=== PATIENT | male | born 1965 | race Caucasian/White ===

== ENCOUNTER 2021-04-05 07:29 | Emergency (ER) | payer SELFPAY ==
--- NOTE | ~2021-04-05 | XR_ITS ---
EXAMINATION: XR CHEST CLINICAL INFORMATION: Chest pain COMPARISON: July 30, 2020 TECHNIQUE: AP portable view of the chest was obtained. FINDINGS: No significant abnormality is noted involving the heart, lungs, mediastinum, bony thorax or soft tissues. XR/XR chest 1V IMPRESSION: No acute disease.
--- NOTE | ~2021-04-05 | NM_ITS ---
EXAMINATION: NUCLEAR MEDICINE HIDA SCAN. CLINICAL INFORMATION: Right upper quadrant pain. COMPARISON: Ultrasound abdomen 04/05/2021 TECHNIQUE: 5 mCi of mebrofenin was injected intravenously and imaging the right upper quadrant was obtained up to 60 minutes. At 30 minutes 1.5 mcg of CCK was administered and further imaging was obtained for next 30 minutes. FINDINGS: There is normal hepatic uptake with prompt visualization of CBD by 9 minutes. The gallbladder is visualized by 15 minutes. Small bowel is visualized by 14 minutes. Post CCK there is no emptying of gallbladder up to 30 minutes suggestive of acalculus cholecystitis. NM/NM hepatobiliary w pharm IMPRESSION: Findings suggestive of acalculus cholecystitis.
--- NOTE | ~2021-04-05 | US_ITS ---
EXAMINATION: US ABDOMEN LIMITED CLINICAL INFORMATION: Evaluate for cholecystitis. COMPARISON: CT abdomen and pelvis with contrast 04/05/2021 TECHNIQUE: Real-time imaging of the right upper quadrant abdominal viscera. FINDINGS: PANCREAS: The head and body of pancreas is homogeneous in echotexture. The tail is obscured by overlying gas. There are punctate echogenic calcification seen in the body of the pancreas. LIVER: Normal. The liver is normal in size. The liver contour is normal. Parenchymal echogenicity is normal. No focal hepatic lesion. There is no intrahepatic biliary duct dilatation seen. GALLBLADDER: Gallbladder wall thickness is 0.3 cm The gallbladder is physiologically distended without evidence of stones, sludge, polyps, wall thickening or pericholecystic fluid. There is mild tenderness in the right upper quadrant. COMMON BILE DUCT: Normal in caliber measuring 0.3 - 0.6 cm in diameter. RIGHT KIDNEY: In the lower pole there is a tiny echogenic calcification with shadowing likely stone. No hydronephrosis. No focal parenchymal lesions. The kidney measures 11.5 cm in maximum dimension. FREE FLUID: None. US/US abdomen limited IMPRESSION: Distended gallbladder but no echogenic stones seen. There is mild tenderness in the right upper quadrant. Gallbladder wall thickness is minimally prominent measuring 0.3 cm. No pericholecystic fluid collection. There is punctate calcifications in the pancreas but otherwise unremarkable. Liver, spleen CBD and right kidney is unremarkable.. Likely nonobstructive echogenic stone lower pole left kidney
--- NOTE | ~2021-04-05 | CT_ITS ---
EXAMINATION: CT ABDOMEN AND PELVIS WITH CONTRAST CLINICAL INFORMATION: Epigastric pain and nausea COMPARISON: None TECHNIQUE: Multidetector volumetric images were obtained from the superior aspect of the liver through the pubic symphysis following administration 85 mL of Omnipaque 350 intravenous contrast. Sagittal and coronal reformatted images were obtained on the technologist's workstation. Oral contrast: Yes This CT examination was performed using dose optimization techniques as appropriate, variously including the following: *Automated exposure control *Adjustment of mA and/or kV according to patient size (this includes techniques or standardized protocols for targeted exams where dose is matched to indication/reason for exam; i.e. extremities or head) *Use of iterative reconstruction technique DLP: 439 mGy-cm FINDINGS: LUNG BASES: There is motion artifact at the lung bases. There may be a small calcified right lower lobe nodule axial image 34 series 4. LIVER, GALLBLADDER, AND BILIARY TREE: The liver is normal in size, shape, and attenuation. No focal hepatic lesion or biliary ductal dilatation is present. The gallbladder is upper normal in size. The gallbladder wall may be minimally thickened. No gallstones or pericholecystic fluid is seen. There is no intra or extrahepatic biliary duct dilatation. PANCREAS: There are small calcifications in the pancreas questionable for changes from chronic pancreatitis. SPLEEN: Unremarkable. ADRENAL GLANDS: Unremarkable. KIDNEYS AND URETERS: There are 2 small calcifications in the lower pole of the right kidney questionable for small stones. There are bilateral more central calcifications probably representing vascular calcifications. There is a small 4 mm lesion exophytic to the upper pole of the left kidney for example coronal reconstructed image 53 and sagittal reconstructed image 49. This is adjacent to an area of cortical thinning or junctional parenchymal defect. No hydronephrosis. BLADDER: Not optimally distended. There may be diffuse bladder wall thickening. GASTROINTESTINAL TRACT: There is stool throughout the colon suggestive of constipation. It is difficult to exclude mild wall thickening of the sigmoid colon for example axial image 60 series 3. Small and large bowel is otherwise unremarkable. The appendix is unremarkable. There may be wall thickening of the proximal stomach. ABDOMINAL WALL: There is a tiny umbilical hernia containing fat. LYMPH NODES: There are small retroperitoneal lymph nodes. No enlarged lymph nodes are seen. VASCULAR: There is evidence of atherosclerotic disease. PELVIC VISCERA: Unremarkable. OSSEOUS STRUCTURES: There are mild degenerative changes of the spine. CT/CT abdomen pelvis w con IMPRESSION: Upper normal-size gallbladder and question mild gallbladder wall thickening. No stone or pericholecystic fluid seen. Cholecystitis should be considered. This could be better evaluated with ultrasound if clinically indicated. Small calcifications in the pancreas suggestive of evidence of chronic pancreatitis. No evidence of acute pancreatitis. Small right renal stones. Small 4 mm indeterminate lesion exophytic to the upper pole the left kidney adjacent to area of cortical thinning or scarring or persistent parenchymal junctional defect. Probable mild diffuse bladder wall thickening. Constipation. Question mild wall thickening of the sigmoid colon and proximal stomach.
--- NOTE | 2021-04-05 07:34 | ECG_ITS ---
Test Reason : CP Blood Pressure : / mmHG Vent. Rate : 075 BPM Atrial Rate : 075 BPM P-R Int : 126 ms QRS Dur : 090 ms QT Int : 374 ms P-R-T Axes : 060 073 064 degrees QTc Int : 417 ms Normal sinus rhythm Voltage criteria for left ventricular hypertrophy Abnormal ECG When compared with ECG of 30-JUL-2020 08:08, No significant change was found Referred By: Gill Lea Electronically Signed By:SHELIA JUNIOR MD
--- NOTE | 2021-04-05 07:37 | ED_ITS ---
HPI - Chest Pain General Chief Complaint: Chest Pain Stated Complaint: chest pain Time Seen by Provider: 04/05/21 07:33 Source: patient Mode of arrival: ambulatory Limitations: no limitations History of Present Illness MD complaint: other (epigastric pain) Onset (ago): week(s) (1) Timing of current episode: episodic Prior episodes: No Onset: after eating Pain location: substernal Pain radiation: none Severity: moderate Quality: tightness and aching Relieving factors: nothing Exacerbating factors: eating Associated symptoms: dyspnea Treatment prior to arrival: none Related Data Previous Rx's Medication Instructions Recorded amoxicillin-pot clavulanate 1 tab PO BID #14 tab 04/05/21 [Augmentin] famotidine [Pepcid] 20 mg PO DAILY PRN #30 tab 04/05/21 glipizide 10 mg PO DAILY #30 tab 04/05/21 hydrocodone-acetaminophen 1 tab PO Q6H PRN #12 tab 04/05/21 ondansetron 4 mg PO Q8H PRN #20 tab 04/05/21 pioglitazone 45 mg PO DAILY #30 tab 04/05/21 Allergies Allergy/AdvReac Type Severity Reaction Status Date / Time No Known Allergies Allergy Unverified 08/09/20 19:53 [No Known Allergies*] Review of Systems Review of Systems: Constitutional : No Weight loss, No Fever, No Chills ENT/Mouth : No sore throat, No Rhinorrhea Eyes: No Eye Pain, No Swelling Cardiovascular : pos Chest Pain, pos SOB, no Dyspnea on Exertion, No Orthopnea, No Edema, No Palpitations Respiratory : No Cough, No Sputum Gastrointestinal : pos Nausea, No Vomiting, No Diarrhea, pos abdominal Pain, No Hematochezia, No Melena Genitourinary : No Dysuria, No Urinary Frequency Musculoskeletal : No joint pain, No Myalgias, No Joint Swelling Skin : No Skin Lesions, No rash Neuro : No Weakness, No Numbness, No Dizziness, No Headache Psych : No Anxiety/Panic, No Depression Heme/Lymph: No Bruising, No Lymphadenopathy Endocrine : No Polyuria, No Polydipsia All other systems reviewed and are negative [facility] Past Medical History Attestation statement: The following information was validated with the patient. Medical History Diabetes HTN (hypertension) Neuropathy Social History Social History (Updated 04/05/21 @ 07:43 by Gill Lea DO) Alcohol intake: never Smoking Status: Current every day smoker Smoked in Last 30 Days: Yes Use of substances other than those prescribed or required for medical reasons: No Advance Directives: Yes Advance Directives Information Provided: Yes Advance Directives on File: No Physical Exam Vital Signs: Vital Signs: Last Vital Signs Temp 98.1 F 04/05/21 12:52 Pulse 74 04/05/21 12:52 Resp 16 04/05/21 12:52 BP 165/78 H 04/05/21 12:52 Pulse Ox 96 04/05/21 12:52 Body Mass Index 26.7 Appearance: Alert. Oriented X3. No acute distress. Eyes: Pupils equal, round and reactive to light. ENT: Pharynx normal. Neck: Normal inspection. Neck supple. CVS: Normal heart rate and rhythm. Pulses normal. Respiratory: No respiratory distress. Breath sounds normal. Abdomen: Soft and mild epigastric ttp no rebound or guarding Skin: Skin warm and dry. Normal skin color. Normal skin turgor. Extremities: No lower extremity edema. No calf ttp Neuro: Oriented X 3. No motor deficit. No sensory deficit. Course Course Course Narrative: chronic pancreatitis possible GB disease, cardiac workup thus far negative, US for further GB evaluation noted US concerning for GB disease, Dr. Oshea aware will come see patient in the ED stable for DC per Dr. Oshea will see as outpatient MDM - Chest Pain MDM Narrative Medical decision making narrative: 55 yo male with HTN, DM, smoker no prior cardiac issues c/o chest pain that is in epigastric area worse with eating - denies NSAID use or GIB symptoms, feels like after he eats he cannot take a deep breath has been going on for a week, no signs of DVT, no tachycardia/hypoxia doubt PE, seems atypical for ACS, ?PUD at this time labs, CT scan, troponin x 1, GI cocktail, PPI Lab Data Result diagrams: 04/05/21 08:04 04/05/21 08:34 Labs: Lab Results 04/05/21 04/05/21 04/05/21 Range/Units 08:04 08:04 08:04 WBC 12.5 H (4.8-10.8) X10*3/uL RBC 4.55 L (4.60-5.80) X10*6/uL Hgb 13.4 L (14.0-18.0) g/dl Hct 41.6 L (42-52) % MCV 91.4 (80-98) fL MCH 29.5 (27.0-33.0) pg MCHC 32.2 (31.0-36.0) g/dl RDW 12.9 (11.0-16.0) % Plt Count 294 (160-400) X10*3/uL MPV 10.0 (9.4-12.4) fL Immature Gran % (Auto) 0.6 H (0.0-0.4) % Neut % (Auto) 71.0 (45-73) % Lymph % (Auto) 21.0 (20-40) % [place] % (Auto) 5.6 (2-11) % Eos % (Auto) 1.2 (0-4) % Baso % (Auto) 0.6 (0-2) % Lymph # (Auto) 2.6 (1.2-4.9) X10*3/uL [place] # (Auto) 0.7 (0.1-1.2) X10*3/uL Eos # (Auto) 0.2 (0.0-0.4) X10*3/uL Baso # (Auto) 0.1 (0.0-0.2) X10*3/uL Abs Immat Gran (auto) 0.07 H (0.00-0.03) X10*3/uL Absolute Neuts (auto) 8.9 H (2.0-8.3) X10*3/uL Absolute Nucleated RBC 0.000 (0.0-0.012) X10*3/uL Nucleated RBC % (auto) 0.0 (0.0-0.2) /100WBC PT (10.8-13.0) SEC INR (0.9-1.1) APTT (24.1-38.0) SEC Sodium (135-145) mmol/L Potassium (3.3-5.1) mmol/L Chloride (96-108) mmol/L Carbon Dioxide (22-29) mmol/L Anion Gap (12-20) BUN (9-16) mg/dL Creatinine (0.5-1.4) mg/dL Estim Creat Clear Calc Estimated GFR Random Glucose (60-115) mg/dL Calcium (8.4-10.2) mg/dL Magnesium (1.6-2.6) mg/dL Total Bilirubin (0.0-1.0) mg/dL Direct Bilirubin (0.0-0.5) mg/dL AST (5-37) U/L ALT (0-40) U/L Alkaline Phosphatase (39-117) U/L Troponin I High Sens 6.4 (<3.5-35.0) ng/L Total Protein (6.5-8.0) g/dL Albumin (3.5-5.0) g/dL Lipase (8-78) U/L COVID-19 (ITALO) Negative (Negative) COVID-19 Clin Com See Note 04/05/21 04/05/21 Range/Units 08:34 08:34 WBC (4.8-10.8) X10*3/uL RBC (4.60-5.80) X10*6/uL Hgb (14.0-18.0) g/dl Hct (42-52) % MCV (80-98) fL MCH (27.0-33.0) pg MCHC (31.0-36.0) g/dl RDW (11.0-16.0) % Plt Count (160-400) X10*3/uL MPV (9.4-12.4) fL Immature Gran % (Auto) (0.0-0.4) % Neut % (Auto) (45-73) % Lymph % (Auto) (20-40) % [place] % (Auto) (2-11) % Eos % (Auto) (0-4) % Baso % (Auto) (0-2) % Lymph # (Auto) (1.2-4.9) X10*3/uL [place] # (Auto) (0.1-1.2) X10*3/uL Eos # (Auto) (0.0-0.4) X10*3/uL Baso # (Auto) (0.0-0.2) X10*3/uL Abs Immat Gran (auto) (0.00-0.03) X10*3/uL Absolute Neuts (auto) (2.0-8.3) X10*3/uL Absolute Nucleated RBC (0.0-0.012) X10*3/uL Nucleated RBC % (auto) (0.0-0.2) /100WBC PT 10.6 L (10.8-13.0) SEC INR 0.9 (0.9-1.1) APTT 35.7 (24.1-38.0) SEC Sodium 136 (135-145) mmol/L Potassium 5.6 H (3.3-5.1) mmol/L Chloride 105 (96-108) mmol/L Carbon Dioxide 26 (22-29) mmol/L Anion Gap 11 L (12-20) BUN 16 (9-16) mg/dL Creatinine 0.86 (0.5-1.4) mg/dL Estim Creat Clear Calc 91.8 Estimated GFR > 60 Random Glucose 264 H (60-115) mg/dL Calcium 9.2 (8.4-10.2) mg/dL Magnesium 1.9 (1.6-2.6) mg/dL Total Bilirubin 0.2 (0.0-1.0) mg/dL Direct Bilirubin < 0.2 (0.0-0.5) mg/dL AST 12 (5-37) U/L ALT 14 (0-40) U/L Alkaline Phosphatase 92 (39-117) U/L Troponin I High Sens (<3.5-35.0) ng/L Total Protein 6.9 (6.5-8.0) g/dL Albumin 4.0 (3.5-5.0) g/dL Lipase 189 H (8-78) U/L COVID-19 (ITALO) (Negative) COVID-19 Clin Com ECG Data ECG #1: Attestation: I personally reviewed and interpreted this ECG as follows: ECG interpretation date: 04/05/21 ECG interpretation time: 07:41 Interpretation: Rate: 75 Rhythm: NSR [place]: normal , LVH Normal P waves. Normal KENDRICK. Normal QRS complex. ST T wave : normal, no NABEEL - mild diffuse early repol qTC: normal prior studies: no acute ischemia The study has been interpreted contemporaneously by me. . Discharge Plan Discharge Clinical Impression: RUQ abdominal pain, Biliary dyskinesia Patient Disposition: Home, Self-Care Instructions: Low Fat Diet (ED), Biliary Dyskinesia (DC) Additional Instructions: return to ED for any worsening symptoms or concerns eat all low fat diet Prescriptions: New hydrocodone-acetaminophen 5-325 mg tablet 1 tab PO Q6H PRN (Reason: pain) Qty: 12 RF: 0 famotidine [Pepcid] 20 mg tablet 20 mg PO DAILY PRN (Reason: abdominal discomfort) Qty: 30 RF: 0 ondansetron 4 mg tablet,disintegrating 4 mg PO Q8H PRN (Reason: nausea and vomiting) Qty: 20 RF: 0 amoxicillin-pot clavulanate [Augmentin] 875-125 mg tablet 1 tab PO BID Qty: 14 RF: 0 glipizide 10 mg tablet 10 mg PO DAILY Qty: 30 RF: 2 pioglitazone 45 mg tablet 45 mg PO DAILY Qty: 30 RF: 2 Referrals: Nico Oshea MD [Physician] - 1 week (next week) Stand Alone Forms: Work/School Release
[2021-04-05 07:38] VITALS: BP 172/76; PULSE 76; RESP 20; TEMP 36.6; O2SAT 99; BMI 26.7
[2021-04-05 08:08] LABS: MANUAL DIFF FLAG NO
[2021-04-05 08:13] LABS: Basophils Absolute Auto 0.1 X10*3/uL (0.0-0.2); Basophils Percent Auto 0.6 % (0-2); Eosinophils Absolute Auto 0.2 X10*3/uL (0.0-0.4); Eosinophils Percent Auto 1.2 % (0-4); Hematocrit 41.6 % (42-52); Hemoglobin 13.4 g/dl (14.0-18.0); Imm Gran Abs Auto 0.07 X10*3/uL (0.00-0.03); Imm Gran Pct Auto 0.6 % (0.0-0.4); Lymphocytes Absolute Auto 2.6 X10*3/uL (1.2-4.9); Mean Corpuscular HGB Conc 32.2 g/dl (31.0-36.0); Mean Corpuscular Hemoglobin 29.5 pg (27.0-33.0); Mean Corpuscular Volume 91.4 fL (80-98); Monocytes Absolute Auto 0.7 X10*3/uL (0.1-1.2); Monocytes Percent Auto 5.6 % (2-11); Neutrophils Absolute Auto 8.9 X10*3/uL (2.0-8.3); Platelet Count 294 X10*3/uL (160-400); Red Blood Count 4.55 X10*6/uL (4.60-5.80); Red Cell Distribution Width 12.9 % (11.0-16.0); White Blood Count 12.5 X10*3/uL (4.8-10.8)
[2021-04-05 08:17] VITALS: BP 154/76; PULSE 79; RESP 16; O2SAT 97
[2021-04-05] MEDS: Lidocaine HCl Viscous 2 % 15 ML SOLUTION MUCOUS MEM (08:18)
[2021-04-05] MEDS: Magnesium Hydrox/Alum Hydrox 30 ML ORAL.SUSP PO (08:18)
[2021-04-05] MEDS: Omeprazole 20 MG CAPSULE.DR PO (08:18)
[2021-04-05 08:27] LABS: COVID-19 Test Negative (Negative)
[2021-04-05 08:37] LABS: Troponin-I High Sensitivity 6.4 ng/L (<3.5-35.0)
[2021-04-05 08:54] LABS: INTERNATIONAL NORM RATIO 0.9 (0.9-1.1); Prothrombin Time 10.6 SEC (10.8-13.0)
[2021-04-05 08:57] LABS: Partial Thromboplastin Time 35.7 SEC (24.1-38.0)
[2021-04-05 09:15] LABS: Alanine Aminotransferase 14 U/L (0-40); Alkaline Phosphatase 92 U/L (39-117); Anion Gap 11 (12-20); Aspartate Amino Transferase 12 U/L (5-37); Bilirubin Direct < 0.2 mg/dL (0.0-0.5); Bilirubin Total 0.2 mg/dL (0.0-1.0); Blood Urea Nitrogen 16 mg/dL (9-16); Calcium 9.2 mg/dL (8.4-10.2); Carbon Dioxide 26 mmol/L (22-29); Chloride 105 mmol/L (96-108); Creatinine Clr Calc Pharmacy 91.8; Estimated Glomerular Filt Rate > 60; Glucose Random 264 mg/dL (60-115); Magnesium 1.9 mg/dL (1.6-2.6); Potassium 5.6 mmol/L (3.3-5.1); Sodium 136 mmol/L (135-145); Total Protein 6.9 g/dL (6.5-8.0)
[2021-04-05 09:28] LABS: Lipase 189 U/L (8-78)
[2021-04-05] MEDS: 0.9 % Sodium Chloride 1,000 ML 999 ML IVCONT (09:39)
[2021-04-05] MEDS: iohexoL 350 MG/ML 100 ML INFUS..BTL IV (09:43)
--- NOTE | 2021-04-05 12:44 | P.CONGS_ITS ---
History of Present Illness Consult details Consult date: 04/05/21 Reason for consult: abdominal pain Requesting physician: Gill Lea Narrative: 55-year-old male presenting with a 1.5 week history of abdominal pain located in the epigastrium radiating to the right upper quadrant. The pain has been persistent and increases after eating. 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 He subsequently presented to the emergency department was noted to be tender in the right upper quadrant. Workup revealed a mildly elevated WBC, LFTs normal. Ultrasound of the abdomen revealed a distended gallbladder with its mild tenderness to palpation. No gallstones were identified within the gallbladder. No wall thic kening was appreciated by ultrasound. Surgical consultation was requested for possible acalculous cholecystitis. Review of Systems Review of Systems: Yes all other systems are reviewed and are negative Constitutional: Constitutional: Reports difficulty sleeping, Reports fatigue and Reports malaise Cardiovascular: Cardiovascular: Reports chest pain, Denies irregular heart rhythm, Denies leg edema and Denies Loss of Consciousness Respiratory: Respiratory: Denies chest congestion, Denies cough, Denies hemoptysis and Reports pain on inspiration Gastrointestinal: Gastrointestinal: Denies abdominal pain, Reports bloating, Denies hematochezia, Denies coffee ground emesis, Reports nausea and Denies vomiting Genitourinary: Genitourinary: Reports no additional male genitourinary complaints Musculoskeletal: Musculoskeletal: Reports no additional musculoskeletal complaints Endocrine: Endocrine: Reports fatigue Hematologic/Lymphatic: Hematologic/Lymphatic: Denies lymphadenopathy [facility] Past Medical History Medical History Diabetes HTN (hypertension) Neuropathy Social History Social History (Updated 04/05/21 @ 07:43 by Gill Lea DO) Alcohol intake: never Smoking Status: Current every day smoker Smoked in Last 30 Days: Yes Use of substances other than those prescribed or required for medical reasons: No Advance Directives: Yes Advance Directives Information Provided: Yes Advance Directives on File: No Meds Allergies Allergy/AdvReac Type Severity Reaction Status Date / Time No Known Allergies Allergy Unverified 08/09/20 19:53 [No Known Allergies*] Physical Exam Vital Signs: Vital Signs: Last Vital Signs Temp 98 F 04/05/21 07:38 Pulse 79 04/05/21 08:17 Resp 16 04/05/21 08:17 BP 154/76 H 04/05/21 08:17 Pulse Ox 97 04/05/21 08:17 Body Mass Index 26.7 Const: General: cooperative, comfortable, no acute distress, alert and awake Orientation/consciousness: patient oriented x3 Limitations: no limitations Eyes: Sclerae: sclerae normal EOM: EOMs intact bilaterally Neck: Neck: Yes normal visual inspection Lymphatic: no lymphadenopathy noted Resp: Effort & Inspection: normal respiratory effort Cardio: Jugular venous distension: no JVD Rate: regular rate Rhythm: regular rhythm GI: Inspection: Yes distended and No scar Palpation (GI): Soft to palpation, Tenderness to palpation present (GI) in the RUQ and Lockett's sign positive and no masses Percussion: Yes normal to percussion Auscultation: normal bowel sounds Rectal Exam - Male: Yes deferred Skin: General skin exam: no rashes or lesions noted Neuro: General: patient oriented x3 Extrem: General: Yes no clubbing, cyanosis or edema Results Labs Result diagrams: 04/05/21 08:04 04/05/21 08:34 Labs: Abnormal lab results 04/05/21 04/05/21 04/05/21 Range/Units 08:04 08:34 08:34 WBC 12.5 H (4.8-10.8) X10*3/uL RBC 4.55 L (4.60-5.80) X10*6/uL Hgb 13.4 L (14.0-18.0) g/dl Hct 41.6 L (42-52) % Immature Gran % (Auto) 0.6 H (0.0-0.4) % Abs Immat Gran (auto) 0.07 H (0.00-0.03) X10*3/uL Absolute Neuts (auto) 8.9 H (2.0-8.3) X10*3/uL PT 10.6 L (10.8-13.0) SEC Potassium 5.6 H (3.3-5.1) mmol/L Anion Gap 11 L (12-20) Random Glucose 264 H (60-115) mg/dL Lipase 189 H (8-78) U/L Short CBC 04/05/21 Range/Units 08:04 WBC 12.5 H (4.8-10.8) X10*3/uL Hgb 13.4 L (14.0-18.0) g/dl Hct 41.6 L (42-52) % Plt Count 294 (160-400) X10*3/uL BMP 04/05/21 08:34 Sodium 136 Potassium 5.6 H Chloride 105 Carbon Dioxide 26 BUN 16 Creatinine 0.86 Calcium 9.2 Liver Function 04/05/21 Range/Units 08:34 Total Bilirubin 0.2 (0.0-1.0) mg/dL Direct Bilirubin < 0.2 (0.0-0.5) mg/dL AST 12 (5-37) U/L ALT 14 (0-40) U/L Alkaline Phosphatase 92 (39-117) U/L Albumin 4.0 (3.5-5.0) g/dL All other labs normal. Assessment and Plan (1) RUQ abdominal pain: Status: Acute 55-year-old male patient presenting with complaints of 1.5 weeks of abdominal pain in the right upper quadrant associated with dietary intake found to be tender in the right upper quadrant with a positive Lockett sign. Workup with laboratories revealed a mildly elevated WBC but normal liver functions. Ultrasound the abdomen revealed a distended gallbladder without wall thickening or cholelithiasis. Examination is suggestive of acalculous cholecystitis therefore I recommended further evaluation with a HIDA scan. If this reveals obstruction of the gallbladder, cholecystectomy may be indicated.
[2021-04-05 12:52] VITALS: BP 165/78; PULSE 74; RESP 16; TEMP 36.7; O2SAT 96
== END 2021-04-05 16:13 | disposition home or self-care (01) ==
PROVIDERS: Emergency Provider Emergency Medicine; PCP Internal Medicine Sports Medicine
DX: R10.13 Epigastric pain (principal); R07.9 Chest pain, unspecified; K82.8 Other specified diseases of gallbladder; F17.200 Nicotine dependence, unspecified, uncomplicated; Z20.822 Contact with and (suspected) exposure to COVID-19; Z79.899 Other long term (current) drug therapy; Z71.6 Tobacco abuse counseling
CPT/HCPCS: 36415; 71045; 74177; 76705; 78227; 80048; 80076; 83690; 83735; 84484; 85025; 85610; 85730; 87635; 93005; 96360; 96361; 99284; A9537; J2805; Q9967

== ENCOUNTER 2021-07-11 02:07 | Emergency (ER) | payer MEDICAID, SELFPAY ==
[2021-07-11 02:30] VITALS: BP 190/83; PULSE 110; RESP 16; TEMP 36.7; O2SAT 98; BMI 25.8
[2021-07-11 03:14] LABS: Glucose Urine UA >=1000 MG/DL (NEG); Leukocyte Esterase Urine NEG (NEG); Nitrite Urine NEG (NEG); Urine Blood NEG (NEG); Urine Ketones NEG (NEG); Urine Protein NEG (NEG-TRACE)
[2021-07-11 03:16] LABS: Appearance Urine CLEAR; Color Urine YELLOW
[2021-07-11 03:24] LABS: Bacteria Urine 1+ /LPF; Squamous Epithelial Cell Urine 1+ /LPF
[2021-07-11 03:47] LABS: Amphetamine Screen Urine Not Detected (Not Detect); Barbiturates, Urine Not Detected (Not Detect); Benzodiazepines Screen Urine Not Detected (Not Detect); Cannabinoid Screen Urine Not Detected (Not Detect); Cocaine Screen Urine Not Detected (Not Detect); Fentanyl, urine Not Detected (Not Detect); Opiate Screen Urine Not Detected (Not Detect); Phencyclidine Screen Urine Not Detected (Not Detect)
[2021-07-11 04:37] LABS: MANUAL DIFF FLAG NO
[2021-07-11 04:38] LABS: Basophils Absolute Auto 0.1 X10*3/uL (0.0-0.2); Basophils Percent Auto 0.6 % (0-2); Eosinophils Absolute Auto 0.2 X10*3/uL (0.0-0.4); Eosinophils Percent Auto 1.6 % (0-4); Hematocrit 38.7 % (42-52); Imm Gran Abs Auto 0.04 X10*3/uL (0.00-0.03); Imm Gran Pct Auto 0.3 % (0.0-0.4); Lymphocytes Absolute Auto 3.1 X10*3/uL (1.2-4.9); Lymphocytes Percent Auto 26.6 % (20-40); Mean Corpuscular HGB Conc 33.6 g/dl (31.0-36.0); Mean Corpuscular Hemoglobin 30.2 pg (27.0-33.0); Mean Platelet Volume 10.1 fL (9.4-12.4); Monocytes Absolute Auto 0.7 X10*3/uL (0.1-1.2); Monocytes Percent Auto 6.1 % (2-11); Neutrophils Absolute Auto 7.5 X10*3/uL (2.0-8.3); Neutrophils Percent Auto 64.8 % (45-73); Platelet Count 265 X10*3/uL (160-400); Red Cell Distribution Width 13.4 % (11.0-16.0); White Blood Count 11.6 X10*3/uL (4.8-10.8)
[2021-07-11 05:16] LABS: Alanine Aminotransferase 14 U/L (0-40); Albumin Level 3.8 g/dL (3.5-5.0); Alkaline Phosphatase 91 U/L (39-117); Anion Gap 14 (12-20); Aspartate Amino Transferase 11 U/L (5-37); Bilirubin Total 0.2 mg/dL (0.0-1.0); Blood Urea Nitrogen 42 mg/dL (9-16); Calcium 9.5 mg/dL (8.4-10.2); Carbon Dioxide 19 mmol/L (22-29); Chloride 106 mmol/L (96-108); Creatinine Clr Calc Pharmacy 56.5; Estimated Glomerular Filt Rate 53; Glucose Random 471 mg/dL (60-115); Potassium 5.2 mmol/L (3.3-5.1); Sodium 134 mmol/L (135-145); Total Protein 6.3 g/dL (6.5-8.0)
--- NOTE | 2021-07-11 05:27 | ED_ITS ---
HPI - General Adult General Chief complaint: General Medical Stated complaint: reaction to meds? Time Seen by Provider: 07/11/21 04:39 Source: patient Mode of arrival: ambulatory Limitations: no limitations History of Present Illness HPI narrative: 56-year-old male who presents emergency department for evaluation of confusion. The patient states that he has been having left hip pain for 3 weeks. He does not recall any injury. States the pain is constant and is a pounding sensation. The pain radiates down to his foot. He states that he has weakness in his left leg compared to his right. The patient also states that 3 weeks ago he was diagnosed with pneumonia and put on antibiotics. States that his cough cleared up but he continued to have by a runny nose and sinus congestion. He went to an urgent care clinic today and had an x-ray of his left hip and was told that he had arthritis of the hip. He also had a negative COVID test. He was started on meloxicam and Zithromax. He states that both these medicines last night and also took a Mucinex. He states that this evening, he was confused, he seemed to lose track of time, did not realize that it was time to go to bed. He states that the symptoms are very unusual for him and his was concerned therefore he came to the emergency department for evaluation. Related Data Previous Rx's Medication Instructions Recorded amoxicillin 875 mg-potassium 1 tab PO BID #14 tab 04/05/21 clavulanate 125 mg tablet (Augmentin) famotidine 20 mg tablet (Pepcid) 20 mg PO DAILY PRN #30 tab 04/05/21 glipizide 10 mg tablet 10 mg PO DAILY #30 tab 04/05/21 ondansetron 4 mg disintegrating 4 mg PO Q8H PRN #20 tab 04/05/21 tablet pioglitazone 45 mg tablet 45 mg PO DAILY #30 tab 04/05/21 Allergies Allergy/AdvReac Type Severity Reaction Status Date / Time No Known Allergies Allergy Unverified 08/09/20 19:53 [No Known Allergies*] Review of Systems Review of Systems: Yes all other systems are reviewed and are negative [facility] Past Medical History [facility] Narrative: Social history: The patient smokes 2 packs of cigarettes per day. He denies alcohol use. He denies drug use. Medical History Diabetes HTN (hypertension) Neuropathy Social History Social History Alcohol intake: never Patient Tobacco Use Status: Never used Tobacco Use of substances other than those prescribed or required for medical reasons: No Advance Directives: No Advance Directives Information Provided: Yes Physical Exam Vital Signs: Vital Signs: Last Vital Signs Temp 98.1 F 07/11/21 02:30 Pulse 110 H 07/11/21 02:30 Resp 16 07/11/21 02:30 BP 190/83 H 07/11/21 02:30 Pulse Ox 98 07/11/21 02:30 Body Mass Index 25.8 Const: General: cooperative and no acute distress Orientation/c onsciousness: oriented to person and oriented to place Limitations: no limitations HENMT: Head: Yes normal to inspection, Yes normocephalic and Yes atraumatic Ears: external ears normal General nose exam: Normal external nose present Face and sinus: Yes normal facial exam Mouth: Normal oral and palatal mucosa present Throat: Yes posterior oropharynx normal Eyes: General: appearance normal, both eyes and all related structures Pupils: Equal, round and reactive pupils present Neck: Neck: Yes normal visual inspection, Yes no lymphadenopathy, Yes trachea midline and Yes supple Chest: Chest palpation & inspection: normal inspection of the chest and normal palpation of entire chest wall Resp: Effort & Inspection: normal respiratory effort and able to speak in complete sentences Auscultation: clear to auscultation bilaterally Cardio: Rate: regular rate Rhythm: regular rhythm Heart sounds: S1 normal heart sound present, S2 normal heart sound present and no murmurs GI: Inspection: Yes normal to inspection Palpation (GI): Soft to palpation, nontender and no guarding Auscultation: normal bowel sounds : General: Yes no CVA tenderness Back/Spine/Pelvis: Back: no CVA tenderness Skin: General skin exam: no rashes or lesions noted Neuro: General: oriented to person and oriented to place Cranial nerves: Yes CN's II-XII intact bilaterally and Yes Equal, round and reactive pupils present Cognition (Neuro): normal cognition Motor exam (neuro): 5/5 motor strength present throughout Extrem: General: Yes normal to inspection Psych: Appearance: grossly normal Speech and movement: Normal speech and movement present Affect: normal affect Attitude: cooperative Thought process: Normal thought process present Thought content: Normal thought co ntent present Course Course Course Narrative: 56-year-old male who presents emergency department for evaluation of confusion. Patient was seen in urgent care earlier in started on 2 medications Zithromax and meloxicam. Patient did take both of these medications last night as well as Mucinex. The patient's physical examination was unremarkable. The patient's left hip pain may be secondary to lower back p ain and radicular pain I did discuss this with him. The patient's laboratory evaluation did reveal an elevated glucose of 471 and this may be the cause of his confusion and I do not think is related to the 2 new medications that he started. Given his elevated glucose, I wanted to give the patient normal saline IV x2 L and some IV insulin however patient states that he wants to go home and drink fluid the old take his diabetic medications at home to correct his glucose. At this time the patient was discharged home. I did tell him it was okay to complete the Zithromax [place]ox[place] came. The patient was given verbal and printed instructions prior to discharge. The patient was advised to follow-up with his PCP in 2 days and to return to the emergency department if his symptoms get worse or if he develops any new symptoms that are concerning to him. Medical Decision Making Lab Data Result diagrams: 07/11/21 04:33 07/11/21 04:33 Labs: Lab Results 07/11/21 07/11/21 07/11/21 Range/Units 03:08 03:08 04:33 WBC 11.6 H (4.8-10.8) X10*3/uL RBC 4.30 L (4.60-5.80) X10*6/uL Hgb 13.0 L (14.0-18.0) g/dl Hct 38.7 L (42-52) % MCV 90.0 (80-98) fL MCH 30.2 (27.0-33.0) pg MCHC 33.6 (31.0-36.0) g/dl RDW 13.4 (11.0-16.0) % Plt Count 265 (160-400) X10*3/uL MPV 10.1 (9.4-12.4) fL Immature Gran % (Auto) 0.3 (0.0-0.4) % Neut % (Auto) 64.8 (45-73) % Lymph % (Auto) 26.6 (20-40) % [place] % (Auto) 6.1 (2-11) % Eos % (Auto) 1.6 (0-4) % Baso % (Auto) 0.6 (0-2) % Lymph # (Auto) 3.1 (1.2-4.9) X10*3/uL [place] # (Auto) 0.7 (0.1-1.2) X10*3/uL Eos # (Auto) 0.2 (0.0-0.4) X10*3/uL Baso # (Auto) 0.1 (0.0-0.2) X10*3/uL Abs Immat Gran (auto) 0.04 H (0.00-0.03) X10*3/uL Absolute Neuts (auto) 7.5 (2.0-8.3) X10*3/uL Absolute Nucleated RBC 0.000 (0.0-0.012) X10*3/uL Nucleated RBC % (auto) 0.0 (0.0-0.2) /100WBC Sodium (135-145) mmol/L Potassium (3.3-5.1) mmol/L Chloride (96-108) mmol/L Carbon Dioxide (22-29) mmol/L Anion Gap (12-20) BUN (9-16) mg/dL Creatinine (0.5-1.4) mg/dL Estim Creat Clear Calc Estimated GFR Random Glucose (60-115) mg/dL Calcium (8.4-10.2) mg/dL Total Bilirubin (0.0-1.0) mg/dL AST (5-37) U/L ALT (0-40) U/L Alkaline Phosphatase (39-117) U/L Total Protein (6.5-8.0) g/dL Albumin (3.5-5.0) g/dL Urine Color YELLOW Urine Appearance CLEAR Urine pH 6.0 (5.0-8.0) Ur Specific [place] 1.020 (1.005-1.025) Urine Protein NEG (NEG-TRACE) MG/DL Urine Glucose (UA) >=1000 H (NEG) MG/DL Urine Ketones NEG (NEG) MG/DL Urine Blood NEG (NEG) Urine Nitrite NEG (NEG) Ur Leukocyte Esterase NEG (NEG) Urine RBC 1-4 (0) /HPF Urine WBC 1-4 (0-4) /HPF Ur Squamous Epith Cells 1+ /LPF Urine Bacteria 1+ /LPF Urine Opiates Screen Not Detected (Not Detect) Urine Fentanyl Screen Not Detected (Not Detect) Ur Barbiturates Screen Not Detected (Not Detect) Ur Phencyclidine Scrn Not Detected (Not Detect) Ur Amphetamines Screen Not Detected (Not Detect) U Benzodiazepines Scrn Not Detected (Not Detect) Urine Cocaine Screen Not Detected (Not Detect) U Marijuana (THC) Screen Not Detected (Not Detect) 07/11/21 Range/Units 04:33 WBC (4.8-10.8) X10*3/uL RBC (4.60-5.80) X10*6/uL Hgb (14.0-18.0) g/dl Hct (42-52) % MCV (80-98) fL MCH (27.0-33.0) pg MCHC (31.0-36.0) g/dl RDW (11.0-16.0) % Plt Count (160-400) X10*3/uL MPV (9.4-12.4) fL Immature Gran % (Auto) (0.0-0.4) % Neut % (Auto) (45-73) % Lymph % (Auto) (20-40) % [facility] % (Auto) (2-11) % Eos % (Auto) (0-4) % Baso % (Auto) (0-2) % Lymph # (Auto) (1.2-4.9) X10*3/uL [place] # (Auto) (0.1-1.2) X10*3/uL Eos # (Auto) (0.0-0.4) X10*3/uL Baso # (Auto) (0.0-0.2) X10*3/uL Abs Immat Gran (auto) (0.00-0.03) X10*3/uL Absolute Neuts (auto) (2.0-8.3) X10*3/uL Absolute Nucleated RBC (0.0-0.012) X10*3/uL Nucleated RBC % (auto) (0.0-0.2) /100WBC Sodium 134 L (135-145) mmol/L Potassium 5.2 H (3.3-5.1) mmol/L Chloride 106 (96-108) mmol/L Carbon Dioxide 19 L (22-29) mmol/L Anion Gap 14 (12-20) BUN 42 H D (9-16) mg/dL Creatinine 1.38 (0.5-1.4) mg/dL Estim Creat Clear Calc 56.5 Estimated GFR 53 Random Glucose 471 H* (60-115) mg/dL Calcium 9.5 (8.4-10.2) mg/dL Total Bilirubin 0.2 (0.0-1.0) mg/dL AST 11 (5-37) U/L ALT 14 (0-40) U/L Alkaline Phosphatase 91 (39-117) U/L Total Protein 6.3 L (6.5-8.0) g/dL Albumin 3.8 (3.5-5.0) g/dL Urine Color Urine Appearance Urine pH (5.0-8.0) Ur Specific [place] (1.005-1.025) Urine Protein (NEG-TRACE) MG/DL Urine Glucose (UA) (NEG) MG/DL Urine Ketones (NEG) MG/DL Urine Blood (NEG) Urine Nitrite (NEG) Ur Leukocyte Esterase (NEG) Urine RBC (0) /HPF Urine WBC (0-4) /HPF Ur Squamous Epith Cells /LPF Urine Bacteria /LPF Urine Opiates Screen (Not Detect) Urine Fentanyl Screen (Not Detect) Ur Barbiturates Screen (Not Detect) Ur Phencyclidine Scrn (Not Detect) Ur Amphetamines Screen (Not Detect) U Benzodiazepines Scrn (Not Detect) Urine Cocaine Screen (Not Detect) U Marijuana (THC) Screen (Not Detect) Discharge Plan Discharge Clinical Impression: Acute hyperglycemia, Acute hip pain Patient Disposition: Home, Self-Care Additional Instructions: Your blood sugar was 471. When your blood sugar gets above 400 your very dehydrated. I offered to give you some IV fluid and some IV insulin however you want to go home and try to bring her sugar down by drinking fluids. He should drink at least 2 L of fluid today. Make sure you take your diabetic medications as prescribed by your doctor. I do not think that your symptoms were caused by the new medications that you were taking, you should take these medications as prescribed by your urgent care provider. Follow-up with your doctor in 2 days. Please return to the emergency department if your symptoms get worse or if you develop any symptoms that are concerning to you. Prescriptions: No Action famotidine [Pepcid] 20 mg tablet 20 mg PO DAILY PRN (Reason: abdominal discomfort) Qty: 30 RF: 0 ondansetron 4 mg tablet,disintegrating 4 mg PO Q8H PRN (Reason: nausea and vomiting) Qty: 20 RF: 0 amoxicillin-pot clavulanate [Augmentin] 875-125 mg tablet 1 tab PO BID Qty: 14 RF: 0 glipizide 10 mg tablet 10 mg PO DAILY Qty: 30 RF: 2 pioglitazone 45 mg tablet 45 mg PO DAILY Qty: 30 RF: 2 Interventions: ED Discharge Assessment Last Done: 07/11/21 05:42 Discharge Date/Time: 07/11/21 05:50
== END 2021-07-11 05:50 | disposition home or self-care (01) ==
PROVIDERS: Emergency Provider Emergency Medicine Emergency Medical Services
DX: E11.65 Type 2 diabetes mellitus with hyperglycemia (principal); M25.552 Pain in left hip; I10 Essential (primary) hypertension; F17.210 Nicotine dependence, cigarettes, uncomplicated; Z79.899 Other long term (current) drug therapy
CPT/HCPCS: 36415; 80053; 80307; 81001; 85025; 99283; 99284

== ENCOUNTER 2021-07-17 11:01 | Emergency (ER) | payer MEDICAID, SELFPAY ==
--- NOTE | ~2021-07-17 | XR_ITS ---
EXAMINATION: XR CHEST CLINICAL INFORMATION: Cough. COMPARISON: None TECHNIQUE: Frontal view of the chest was obtained. FINDINGS: The lungs are well-expanded and clear. The heart size and pulmonary vascularity is normal. There is mild spondylosis seen throughout the dorsal spine. No lytic process. XR/XR chest 1V IMPRESSION: No acute cardiopulmonary process seen.
--- NOTE | ~2021-07-17 | CT_ITS ---
EXAMINATION: CT HEAD WITHOUT CONTRAST CLINICAL INFORMATION: Mental status change. Question frontal lobe lesion. COMPARISON: None TECHNIQUE: Contiguous axial imaging was performed from the skull base to vertex without intravenous administration of contrast. This CT examination was performed using dose optimization techniques as appropriate, variously including the following: *Automated exposure control *Adjustment of mA and/or kV according to patient size (this includes techniques or standardized protocols for targeted exams where dose is matched to indication/reason for exam; i.e. extremities or head) *Use of iterative reconstruction technique DLP: 680 mGy-cm FINDINGS: There is no evidence of acute intracranial hemorrhage or territorial infarction. No abnormal mass effect or midline shift is seen. Miramontes to white matter differentiation is well preserved. No extra-axial fluid collections are identified. The ventricles are normal in size. There is no abnormal attenuation within the brain parenchyma. No skull fracture is seen. There is complete soft tissue opacification of the left maxillary sinus. This is slightly heterogeneous in attenuation. The wall of the left maxillary sinus is thickened suggestive of chronic sinusitis. Mastoid air cells and paranasal sinuses are otherwise clear. CT/CT head/brain wo con IMPRESSION: No acute intracranial findings. Chronic left maxillary sinusitis.
[2021-07-17 11:08] VITALS: BP 140/74; BP 172/86; PULSE 117; PULSE 84; RESP 18; TEMP 36.8; O2SAT 96; O2SAT 97; BMI 25.0
[2021-07-17 11:15] LABS: Glucose, Whole Blood 426 mg/dL (60-115)
--- NOTE | 2021-07-17 12:15 | ED.AMS ---
HPI - Altered Mental Status General Chief Complaint: Altered Mental Status Stated Complaint: CRISIS EVAL Time Seen by Provider: 07/17/21 12:15 Source: patient Mode of arrival: EMS Limitations: no limitations History of Present Illness HPI narrative: Patient has any complaints says that his thinks he has something going on with his brain for last 2 weeks , wants to be evaluated and but patient denies any complaints Patient diabetic on oral hyperglycemic did not take his medication today blood sugar was 471 when he arrived. 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 denies any substance abuse Related Data Previous Rx's Medication Instructions Recorded amoxicillin 875 mg-potassium 1 tab PO BID #14 tab 04/05/21 clavulanate 125 mg tablet (Augmentin) famotidine 20 mg tablet (Pepcid) 20 mg PO DAILY PRN #30 tab 04/05/21 glipizide 10 mg tablet 10 mg PO DAILY #30 tab 04/05/21 ondansetron 4 mg disintegrating 4 mg PO Q8H PRN #20 tab 04/05/21 tablet pioglitazone 45 mg tablet 45 mg PO DAILY #30 tab 04/05/21 Allergies Allergy/AdvReac Type Severity Reaction Status Date / Time No Known Allergies Allergy Unverified 08/09/20 19:53 [No Known Allergies*] Review of Systems Review of Systems: Yes all other systems are reviewed and are negative PMFSH Past Medical History Medical History Diabetes HTN (hypertension) Neuropathy Social History Social History Alcohol intake: never Patient Tobacco Use Status: Current everyday Tobacco user Use of substances other than those prescribed or required for medical reasons: Yes Substance Use Type: Marijuana Advance Directives: No Advance Directives Information Provided: Yes Physical Exam Vital Signs: Vital Signs: Last Vital Signs Temp 98.6 F 07/17/21 14:18 Pulse 101 H 07/17/21 14:18 Resp 18 07/17/21 14:18 BP 159/70 H 07/17/21 14:18 Pulse Ox 98 07/17/21 14:18 Body Mass Index 25.0 Appearance: Alert. Oriented X3. No acute distress. Eyes: PERRLA, No Nystagmus ENT: Pharynx normal. Oral Mucosa moist Neck: Normal inspection. Neck supple. CVS: Normal heart rate and rhythm. Pulses normal. Respiratory: No respiratory distress. Equal air entry bilateral, no wheezing/rales/rhonchi Abdomen: Soft and nontender. Bowel sounds are present, no mass palpable, no CVA tenderness Skin: Skin warm and dry. Normal skin color. Normal skin turgor. Extremities: No lower extremity edema. No calf tenderness Neuro: Oriented X 3. No motor deficit. No sensory deficit.No cerebellar signs , cranial nerves II-XII intact MDM - Altered Mental Status MDM Narrative Medical decision making narrative: PATIENT ALERT ORIENTED TIMES IN NO PSYCHOLOGICAL ISSUES NOTICE WHEN EXAMINED THE ER WORKUP IS NEGATIVE INCLUDING CT SCAN OF THE HEAD PATIENT BLOOD SUGAR WAS ELEVATED WHICH IMPROVED AFTER INSULIN PATIENT ADVISED TO DRINK PLENTY OF FLUID WILL DISCHARGE PATIENT HOME ADVISED TO FOLLOW-UP WITH PSYCHIATRIST/PCP OUTPATIENT. Patient been evaluated by therapist advised the patient can be discharged Lab Data Attestation: I reviewed the patient's lab results. Result diagrams: 07/17/21 12:58 07/17/21 12:58 Labs: Lab Results 07/17/21 07/17/21 07/17/21 Range/Units 11:12 12:28 12:58 WBC 16.9 H (4.8-10.8) X10*3/uL RBC 4.52 L (4.60-5.80) X10*6/uL Hgb 13.5 L (14.0-18.0) g/dl Hct 40.2 L (42-52) % MCV 88.9 (80-98) fL MCH 29.9 (27.0-33.0) pg MCHC 33.6 (31.0-36.0) g/dl RDW 13.3 (11.0-16.0) % Plt Count 315 (160-400) X10*3/uL MPV 10.1 (9.4-12.4) fL Immature Gran % (Auto) 0.5 H (0.0-0.4) % Neut % (Auto) 77.6 H (45-73) % Lymph % (Auto) 17.4 L (20-40) % [place] % (Auto) 3.7 (2-11) % Eos % (Auto) 0.4 (0-4) % Baso % (Auto) 0.4 (0-2) % Lymph # (Auto) 2.9 (1.2-4.9) X10*3/uL [place] # (Auto) 0.6 (0.1-1.2) X10*3/uL Eos # (Auto) 0.1 (0.0-0.4) X10*3/uL Baso # (Auto) 0.1 (0.0-0.2) X10*3/uL Abs Immat Gran (auto) 0.09 H (0.00-0.03) X10*3/uL Absolute Neuts (auto) 13.1 H (2.0-8.3) X10*3/uL Absolute Nucleated RBC 0.000 (0.0-0.012) X10*3/uL Nucleated RBC % (auto) 0.0 (0.0-0.2) /100WBC Sodium (135-145) mmol/L Potassium (3.3-5.1) mmol/L Chloride (96-108) mmol/L Carbon Dioxide (22-29) mmol/L Anion Gap (12-20) BUN (9-16) mg/dL Creatinine (0.5-1.4) mg/dL Estim Creat Clear Calc Estimated GFR POC Glucose 426 H* 393 H* (60-115) mg/dL Random Glucose (60-115) mg/dL Calcium (8.4-10.2) mg/dL Magnesium (1.6-2.6) mg/dL Total Bilirubin (0.0-1.0) mg/dL Direct Bilirubin (0.0-0.5) mg/dL AST (5-37) U/L ALT (0-40) U/L Alkaline Phosphatase (39-117) U/L Total Protein (6.5-8.0) g/dL Albumin (3.5-5.0) g/dL Lipase (8-78) U/L Urine Color Urine Appearance Urine pH (5.0-8.0) Ur Specific [place] (1.005-1.025) Urine Protein (NEG-TRACE) MG/DL Urine Glucose (UA) (NEG) MG/DL Urine Ketones (NEG) MG/DL Urine Blood (NEG) Urine Nitrite (NEG) Ur Leukocyte Esterase (NEG) Urine RBC (0) /HPF Urine WBC (0-4) /HPF Ur Squamous Epith Cells /LPF Urine Bacteria /LPF Urine Opiates Screen (Not Detect) Urine Fentanyl Screen (Not Detect) Ur Barbiturates Screen (Not Detect) Ur Phencyclidine Scrn (Not Detect) Ur Amphetamines Screen (Not Detect) U Benzodiazepines Scrn (Not Detect) Urine Cocaine Screen (Not Detect) U Marijuana (THC) Screen (Not Detect) COVID-19 ([facility]) (Negative) COVID-19 Clin Com 07/17/21 07/17/21 07/17/21 Range/Units 12:58 12:58 12:59 WBC (4.8-10.8) X10*3/uL RBC (4.60-5.80) X10*6/uL Hgb (14.0-18.0) g/dl Hct (42-52) % MCV (80-98) fL MCH (27.0-33.0) pg MCHC (31.0-36.0) g/dl RDW (11.0-16.0) % Plt Count (160-400) X10*3/uL MPV (9.4-12.4) fL Immature Gran % (Auto) (0.0-0.4) % Neut % (Auto) (45-73) % Lymph % (Auto) (20-40) % [place] % (Auto) (2-11) % Eos % (Auto) (0-4) % Baso % (Auto) (0-2) % Lymph # (Auto) (1.2-4.9) X10*3/uL [place] # (Auto) (0.1-1.2) X10*3/uL Eos # (Auto) (0.0-0.4) X10*3/uL Baso # (Auto) (0.0-0.2) X10*3/uL Abs Immat Gran (auto) (0.00-0.03) X10*3/uL Absolute Neuts (auto) (2.0-8.3) X10*3/uL Absolute Nucleated RBC (0.0-0.012) X10*3/uL Nucleated RBC % (auto) (0.0-0.2) /100WBC Sodium 134 L (135-145) mmol/L Potassium 5.4 H (3.3-5.1) mmol/L Chloride 99 (96-108) mmol/L Carbon Dioxide 25 (22-29) mmol/L Anion Gap 15 (12-20) BUN 20 H D (9-16) mg/dL Creatinine 1.38 (0.5-1.4) mg/dL Estim Creat Clear Calc 56.5 Estimated GFR 53 POC Glucose (60-115) mg/dL Random Glucose 398 H* (60-115) mg/dL Calcium 10.0 (8.4-10.2) mg/dL Magnesium 1.7 (1.6-2.6) mg/dL Total Bilirubin 0.3 (0.0-1.0) mg/dL Direct Bilirubin 0.2 (0.0-0.5) mg/dL AST 15 (5-37) U/L ALT 16 (0-40) U/L Alkaline Phosphatase 96 (39-117) U/L Total Protein 7.1 (6.5-8.0) g/dL Albumin 4.3 (3.5-5.0) g/dL Lipase 29 (8-78) U/L Urine Color Urine Appearance Urine pH (5.0-8.0) Ur Specific [place] (1.005-1.025) Urine Protein (NEG-TRACE) MG/DL Urine Glucose (UA) (NEG) MG/DL Urine Ketones (NEG) MG/DL Urine Blood (NEG) Urine Nitrite (NEG) Ur Leukocyte Esterase (NEG) Urine RBC (0) /HPF Urine WBC (0-4) /HPF Ur Squamous Epith Cells /LPF Urine Bacteria /LPF Urine Opiates Screen (Not Detect) Urine Fentanyl Screen (Not Detect) Ur Barbiturates Screen (Not Detect) Ur Phencyclidine Scrn (Not Detect) Ur Amphetamines Screen (Not Detect) U Benzodiazepines Scrn (Not Detect) Urine Cocaine Screen (Not Detect) U Marijuana (THC) Screen (Not Detect) COVID-19 ([facility]) Negative (Negative) COVID-19 Clin Com See Note 07/17/21 07/17/21 07/17/21 Range/Units 13:33 14:16 14:55 WBC (4.8-10.8) X10*3/uL RBC (4.60-5.80) X10*6/uL Hgb (14.0-18.0) g/dl Hct (42-52) % MCV (80-98) fL MCH (27.0-33.0) pg MCHC (31.0-36.0) g/dl RDW (11.0-16.0) % Plt Count (160-400) X10*3/uL MPV (9.4-12.4) fL Immature Gran % (Auto) (0.0-0.4) % Neut % (Auto) (45-73) % Lymph % (Auto) (20-40) % [place] % (Auto) (2-11) % Eos % (Auto) (0-4) % Baso % (Auto) (0-2) % Lymph # (Auto) (1.2-4.9) X10*3/uL [place] # (Auto) (0.1-1.2) X10*3/uL Eos # (Auto) (0.0-0.4) X10*3/uL Baso # (Auto) (0.0-0.2) X10*3/uL Abs Immat Gran (auto) (0.00-0.03) X10*3/uL Absolute Neuts (auto) (2.0-8.3) X10*3/uL Absolute Nucleated RBC (0.0-0.012) X10*3/uL Nucleated RBC % (auto) (0.0-0.2) /100WBC Sodium (135-145) mmol/L Potassium (3.3-5.1) mmol/L Chloride (96-108) mmol/L Carbon Dioxide (22-29) mmol/L Anion Gap (12-20) BUN (9-16) mg/dL Creatinine (0.5-1.4) mg/dL Estim Creat Clear Calc Estimated GFR POC Glucose 283 H 209 H 162 H (60-115) mg/dL Random Glucose (60-115) mg/dL Calcium (8.4-10.2) mg/dL Magnesium (1.6-2.6) mg/dL Total Bilirubin (0.0-1.0) mg/dL Direct Bilirubin (0.0-0.5) mg/dL AST (5-37) U/L ALT (0-40) U/L Alkaline Phosphatase (39-117) U/L Total Protein (6.5-8.0) g/dL Albumin (3.5-5.0) g/dL Lipase (8-78) U/L Urine Color Urine Appearance Urine pH (5.0-8.0) Ur Specific [place] (1.005-1.025) Urine Protein (NEG-TRACE) MG/DL Urine Glucose (UA) (NEG) MG/DL Urine Ketones (NEG) MG/DL Urine Blood (NEG) Urine Nitrite (NEG) Ur Leukocyte Esterase (NEG) Urine RBC (0) /HPF Urine WBC (0-4) /HPF Ur Squamous Epith Cells /LPF Urine Bacteria /LPF Urine Opiates Screen (Not Detect) Urine Fentanyl Screen (Not Detect) Ur Barbiturates Screen (Not Detect) Ur Phencyclidine Scrn (Not Detect) Ur Amphetamines Screen (Not Detect) U Benzodiazepines Scrn (Not Detect) Urine Cocaine Screen (Not Detect) U Marijuana (THC) Screen (Not Detect) COVID-19 ([facility]) (Negative) COVID-19 Clin Com 07/17/21 07/17/21 07/17/21 Range/Units 15:06 15:06 15:46 WBC (4.8-10.8) X10*3/uL RBC (4.60-5.80) X10*6/uL Hgb (14.0-18.0) g/dl Hct (42-52) % MCV (80-98) fL MCH (27.0-33.0) pg MCHC (31.0-36.0) g/dl RDW (11.0-16.0) % Plt Count (160-400) X10*3/uL MPV (9.4-12.4) fL Immature Gran % (Auto) (0.0-0.4) % Neut % (Auto) (45-73) % Lymph % (Auto) (20-40) % [place] % (Auto) (2-11) % Eos % (Auto) (0-4) % Baso % (Auto) (0-2) % Lymph # (Auto) (1.2-4.9) X10*3/uL [place] # (Auto) (0.1-1.2) X10*3/uL Eos # (Auto) (0.0-0.4) X10*3/uL Baso # (Auto) (0.0-0.2) X10*3/uL Abs Immat Gran (auto) (0.00-0.03) X10*3/uL Absolute Neuts (auto) (2.0-8.3) X10*3/uL Absolute Nucleated RBC (0.0-0.012) X10*3/uL Nucleated RBC % (auto) (0.0-0.2) /100WBC Sodium (135-145) mmol/L Potassium (3.3-5.1) mmol/L Chloride (96-108) mmol/L Carbon Dioxide (22-29) mmol/L Anion Gap (12-20) BUN (9-16) mg/dL Creatinine (0.5-1.4) mg/dL Estim Creat Clear Calc Estimated GFR POC Glucose 166 H (60-115) mg/dL Random Glucose (60-115) mg/dL Calcium (8.4-10.2) mg/dL Magnesium (1.6-2.6) mg/dL Total Bilirubin (0.0-1.0) mg/dL Direct Bilirubin (0.0-0.5) mg/dL AST (5-37) U/L ALT (0-40) U/L Alkaline Phosphatase (39-117) U/L Total Protein (6.5-8.0) g/dL Albumin (3.5-5.0) g/dL Lipase (8-78) U/L Urine Color YELLOW Urine Appearance CLEAR Urine pH 5.5 (5.0-8.0) Ur Specific [place] <= 1.005 (1.005-1.025) Urine Protein NEG (NEG-TRACE) MG/DL Urine Glucose (UA) >=1000 H (NEG) MG/DL Urine Ketones NEG (NEG) MG/DL Urine Blood NEG (NEG) Urine Nitrite NEG (NEG) Ur Leukocyte Esterase NEG (NEG) Urine RBC 0-2 (0) /HPF Urine WBC 0-2 (0-4) /HPF Ur Squamous Epith Cells NONE /LPF Urine Bacteria NONE /LPF Urine Opiates Screen Not Detected (Not Detect) Urine Fentanyl Screen Not Detected (Not Detect) Ur Barbiturates Screen Not Detected (Not Detect) Ur Phencyclidine Scrn Not Detected (Not Detect) Ur Amphetamines Screen Not Detected (Not Detect) U Benzodiazepines Scrn Not Detected (Not Detect) Urine Cocaine Screen Not Detected (Not Detect) U Marijuana (THC) Screen Not Detected (Not Detect) COVID-19 (ITALO) (Negative) COVID-19 Clin Com Discharge Plan Discharge Clinical Impression: Diabetes mellitus with hyperglycemia, Bipolar 1 disorder Patient Disposition: Home, Self-Care Instructions: Bipolar Disorder (ED), Diabetic Hyperglycemia (ED) Additional Instructions: Taking medication daily diet as advised drink plenty of fluids. Follow-up with your PCP Follow-up with therapist Prescriptions: No Action famotidine [Pepcid] 20 mg tablet 20 mg PO DAILY PRN (Reason: abdominal discomfort) Qty: 30 RF: 0 ondansetron 4 mg tablet,disintegrating 4 mg PO Q8H PRN (Reason: nausea and vomiting) Qty: 20 RF: 0 amoxicillin-pot clavulanate [Augmentin] 875-125 mg tablet 1 tab PO BID Qty: 14 RF: 0 glipizide 10 mg tablet 10 mg PO DAILY Qty: 30 RF: 2 pioglitazone 45 mg tablet 45 mg PO DAILY Qty: 30 RF: 2 Interventions: ED Discharge Assessment Last Done: 07/17/21 21:20 Discharge Date/Time: 07/17/21 21:26
[2021-07-17 12:31] LABS: Glucose, Whole Blood 393 mg/dL (60-115)
[2021-07-17] MEDS: Insulin Lispro 100 UNIT/ML 3 ML VIAL 14 UNIT SUBCUT (12:33)
[2021-07-17 13:07] LABS: MANUAL DIFF FLAG NO
[2021-07-17 13:08] LABS: Basophils Absolute Auto 0.1 X10*3/uL (0.0-0.2); Basophils Percent Auto 0.4 % (0-2); Eosinophils Absolute Auto 0.1 X10*3/uL (0.0-0.4); Eosinophils Percent Auto 0.4 % (0-4); Hematocrit 40.2 % (42-52); Hemoglobin 13.5 g/dl (14.0-18.0); Imm Gran Abs Auto 0.09 X10*3/uL (0.00-0.03); Imm Gran Pct Auto 0.5 % (0.0-0.4); Lymphocytes Absolute Auto 2.9 X10*3/uL (1.2-4.9); Lymphocytes Percent Auto 17.4 % (20-40); Mean Corpuscular HGB Conc 33.6 g/dl (31.0-36.0); Mean Corpuscular Hemoglobin 29.9 pg (27.0-33.0); Mean Corpuscular Volume 88.9 fL (80-98); Mean Platelet Volume 10.1 fL (9.4-12.4); Monocytes Absolute Auto 0.6 X10*3/uL (0.1-1.2); Monocytes Percent Auto 3.7 % (2-11); Neutrophils Absolute Auto 13.1 X10*3/uL (2.0-8.3); Neutrophils Percent Auto 77.6 % (45-73); Platelet Count 315 X10*3/uL (160-400); Red Blood Count 4.52 X10*6/uL (4.60-5.80); Red Cell Distribution Width 13.3 % (11.0-16.0); White Blood Count 16.9 X10*3/uL (4.8-10.8)
[2021-07-17 13:26] LABS: COVID-19 Test Negative (Negative)
[2021-07-17 13:37] LABS: Glucose, Whole Blood 283 mg/dL (60-115)
[2021-07-17 13:49] LABS: Alanine Aminotransferase 16 U/L (0-40); Albumin Level 4.3 g/dL (3.5-5.0); Alkaline Phosphatase 96 U/L (39-117); Aspartate Amino Transferase 15 U/L (5-37); Bilirubin Direct 0.2 mg/dL (0.0-0.5); Bilirubin Total 0.3 mg/dL (0.0-1.0); Lipase 29 U/L (8-78); Magnesium 1.7 mg/dL (1.6-2.6); Total Protein 7.1 g/dL (6.5-8.0)
[2021-07-17 14:02] LABS: Anion Gap 15 (12-20); Blood Urea Nitrogen 20 mg/dL (9-16); Carbon Dioxide 25 mmol/L (22-29); Chloride 99 mmol/L (96-108); Creatinine Clr Calc Pharmacy 56.5; Estimated Glomerular Filt Rate 53; Glucose Random 398 mg/dL (60-115); Potassium 5.4 mmol/L (3.3-5.1); Sodium 134 mmol/L (135-145)
[2021-07-17 14:18] VITALS: BP 159/70; PULSE 101; RESP 18; TEMP 37; O2SAT 98
[2021-07-17 14:21] LABS: Glucose, Whole Blood 209 mg/dL (60-115)
[2021-07-17 14:59] LABS: Glucose, Whole Blood 162 mg/dL (60-115)
[2021-07-17 15:13] LABS: Glucose Urine UA >=1000 MG/DL (NEG); Leukocyte Esterase Urine NEG (NEG); Nitrite Urine NEG (NEG); PH 5.5 (5.0-8.0); Specific Gravity - Urine <= 1.005 (1.005-1.025); Urine Blood NEG (NEG); Urine Ketones NEG (NEG); Urine Protein NEG (NEG-TRACE)
[2021-07-17 15:14] LABS: Appearance Urine CLEAR; Color Urine YELLOW
[2021-07-17 15:23] LABS: RBC Urine 0-2 /HPF (0); WBC Urine 0-2 /HPF (0-4)
[2021-07-17 15:35] LABS: Amphetamine Screen Urine Not Detected (Not Detect); Barbiturates, Urine Not Detected (Not Detect); Benzodiazepines Screen Urine Not Detected (Not Detect); Cannabinoid Screen Urine Not Detected (Not Detect); Cocaine Screen Urine Not Detected (Not Detect); Fentanyl, urine Not Detected (Not Detect); Opiate Screen Urine Not Detected (Not Detect); Phencyclidine Screen Urine Not Detected (Not Detect)
--- NOTE | 2021-07-17 15:45 | PC.NURSE ---
Call made to pt's with his permission. Per , she feels as though pt is having a manic episode, Della reports pt has been behaving erratically, others who know him have contacted her asking her what is wrong with him. 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 Pt made comments to this RN that he smoked marijuana for the first time in a long time last night, and that he was stoned off his ass . Pt tox screen came back negative. Plan for N referral and eval at this time.
[2021-07-17 15:50] LABS: Glucose, Whole Blood 166 mg/dL (60-115)
--- NOTE | 2021-07-17 20:45 | PC.NURSE ---
INGA completed the assessment, disposition is d/c home, awaiting provider's order. Patient calm and quiet and in agreement with d/c plan
== END 2021-07-17 21:26 | disposition home or self-care (01) ==
PROVIDERS: Emergency Provider Internal Medicine
DX: E11.65 Type 2 diabetes mellitus with hyperglycemia (principal); F31.9 Bipolar disorder, unspecified; F17.210 Nicotine dependence, cigarettes, uncomplicated; Z71.6 Tobacco abuse counseling; Z79.899 Other long term (current) drug therapy; Z20.822 Contact with and (suspected) exposure to COVID-19
CPT/HCPCS: 36415; 70450; 71045; 80048; 80076; 80307; 81001; 82947; 83690; 83735; 85025; 87635; 99284

== ENCOUNTER 2021-07-19 11:31 | Emergency (ER) | payer MEDICAID, SELFPAY | END 2021-07-19 12:32 | disposition left against medical advice (07) | LOC: HO.ED 12:30 | PROVIDERS: Emergency Provider Emergency Medicine | DX: R41.82 Altered mental status, unspecified (principal); I10 Essential (primary) hypertension; E11.9 Type 2 diabetes mellitus without complications ==

== ENCOUNTER 2021-07-19 12:27 | Inpatient (IN) | payer OTHER, SELFPAY ==
--- NOTE | 2021-07-19 | ECG_ITS ---
Test Reason : MED CLEARANCE Blood Pressure : / mmHG Vent. Rate : 090 BPM Atrial Rate : 090 BPM P-R Int : 122 ms QRS Dur : 082 ms QT Int : 350 ms P-R-T Axes : 069 079 076 degrees QTc Int : 428 ms Poor data quality, interpretation may be adversely affected Normal sinus rhythm Possible Left atrial enlargement Left ventricular hypertrophy Abnormal ECG When compared with ECG of 05-APR-2021 07:38, No significant change was found Referred By: Berkley Buenrostro Electronically Signed By:NIK PALMA
--- NOTE | ~2021-07-19 | XR_ITS ---
EXAMINATION: XR CHEST CLINICAL INFORMATION: Elevated white blood cell count COMPARISON: Previous chest x-rays most recent 07/17/2021 TECHNIQUE: Frontal view of the chest was obtained. FINDINGS: The cardiac and mediastinal contours are normal. The lungs are clear. There is no pleural effusion or pneumothorax. There are degenerative changes of the spine. XR/XR chest 1V IMPRESSION: Unremarkable examination.
[2021-07-19 12:40] VITALS: BP 151/67; BP 182/79; PULSE 80; PULSE 89; RESP 18; TEMP 36.8; O2SAT 97; O2SAT 99; BMI 24.1
[2021-07-19 13:58] LABS: Glucose, Whole Blood 316 mg/dL (60-115)
[2021-07-19] MEDS: 0.9 % Sodium Chloride 1,000 ML 999 ML IVCONT (14:15)
[2021-07-19 14:19] LABS: MANUAL DIFF FLAG NO
[2021-07-19 14:24] LABS: Basophils Absolute Auto 0.1 X10*3/uL (0.0-0.2); Basophils Percent Auto 0.4 % (0-2); Eosinophils Absolute Auto 0.1 X10*3/uL (0.0-0.4); Eosinophils Percent Auto 0.9 % (0-4); Hemoglobin 13.2 g/dl (14.0-18.0); Imm Gran Abs Auto 0.09 X10*3/uL (0.00-0.03); Imm Gran Pct Auto 0.6 % (0.0-0.4); Lymphocytes Absolute Auto 3.3 X10*3/uL (1.2-4.9); Lymphocytes Percent Auto 20.7 % (20-40); Mean Corpuscular Hemoglobin 29.9 pg (27.0-33.0); Mean Corpuscular Volume 90.7 fL (80-98); Mean Platelet Volume 10.1 fL (9.4-12.4); Monocytes Absolute Auto 0.7 X10*3/uL (0.1-1.2); Monocytes Percent Auto 4.2 % (2-11); Neutrophils Absolute Auto 11.6 X10*3/uL (2.0-8.3); Neutrophils Percent Auto 73.2 % (45-73); Platelet Count 288 X10*3/uL (160-400); Red Blood Count 4.41 X10*6/uL (4.60-5.80); Red Cell Distribution Width 13.3 % (11.0-16.0); White Blood Count 15.8 X10*3/uL (4.8-10.8)
[2021-07-19 14:37] LABS: Acetone, serum QL Negative (Negative)
[2021-07-19 14:38] LABS: Ammonia 16 umol/L (13-55)
[2021-07-19 14:45] LABS: Glucose Urine UA >=1000 MG/DL (NEG); Leukocyte Esterase Urine NEG (NEG); Nitrite Urine NEG (NEG); Specific Gravity - Urine <= 1.005 (1.005-1.025); Urine Blood NEG (NEG); Urine Ketones NEG (NEG); Urine Protein NEG (NEG-TRACE)
[2021-07-19 14:50] LABS: IDNOW Serial# 9DD0AD1C
[2021-07-19 14:51] LABS: COVID-19 Test Negative (Negative)
[2021-07-19 14:53] LABS: Acetaminophen LAB < 1 mcg/mL (<30); Alanine Aminotransferase 13 U/L (0-40); Albumin Level 4.1 g/dL (3.5-5.0); Alkaline Phosphatase 91 U/L (39-117); Anion Gap 14 (12-20); Aspartate Amino Transferase 16 U/L (5-37); Bilirubin Direct < 0.2 mg/dL (0.0-0.5); Bilirubin Total 0.3 mg/dL (0.0-1.0); Blood Urea Nitrogen 19 mg/dL (9-16); Calcium 9.4 mg/dL (8.4-10.2); Carbon Dioxide 23 mmol/L (22-29); Chloride 105 mmol/L (96-108); Creatinine Clr Calc Pharmacy 71.1; Estimated Glomerular Filt Rate > 60; Glucose Random 324 mg/dL (60-115); Lipase 38 U/L (8-78); Magnesium 1.5 mg/dL (1.6-2.6); Potassium 5.2 mmol/L (3.3-5.1); Salicylate < 5.0 mg/dL (15-30); Sodium 137 mmol/L (135-145)
[2021-07-19 14:54] LABS: Appearance Urine CLEAR; Color Urine YELLOW
[2021-07-19 14:56] LABS: RBC Urine 0 /HPF (0); WBC Urine 0 /HPF (0-4)
[2021-07-19 15:08] LABS: Amphetamine Screen Urine Not Detected (Not Detect); Benzodiazepines Screen Urine Not Detected (Not Detect); Cannabinoid Screen Urine Not Detected (Not Detect); Cocaine Screen Urine Not Detected (Not Detect); Fentanyl, urine Not Detected (Not Detect); Opiate Screen Urine Not Detected (Not Detect); Phencyclidine Screen Urine Not Detected (Not Detect)
[2021-07-19 15:10] LABS: Barbiturates, Urine Not Detected (Not Detect)
--- NOTE | 2021-07-19 15:39 | ED.PSYCH ---
HPI - Psych General Chief Complaint: Psychiatric Symptoms Stated Complaint: hyperglycemia Time Seen by Provider: 07/19/21 13:18 Source: patient Mode of arrival: EMS History of Present Illness HPI Narrative: 56-year-old male with a PMHx of diabetes, HTN, neuropathy, presenting to the ED c/o hyperglycemia. POC per EMS 450. Patient reports compliance with diabetic medications. Additional history obtained from that patient has been acting a erratic/impulsive, states recently sold his work truck and traded it in for a car, also gave his business credit card to a homeless man. Was also found petting/rolling around with skunks. 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 Denies fever, chills, CP/SOB, abdominal pain, nausea/vomiting. Denies SI/HI Related Data Home Medications Medication Instructions Recorded Confirmed gabapentin 800 mg tablet 1 tab PO TID 07/19/21 07/19/21 lisinopril 20 mg tablet 1.5 tab PO DAILY 07/19/21 07/19/21 metformin 1,000 mg tablet 1 tab PO BID 07/19/21 07/19/21 Previous Rx's Medication Instructions Recorded famotidine 20 mg tablet (Pepcid) 20 mg PO DAILY PRN #30 tab 04/05/21 pioglitazone 45 mg tablet 45 mg PO DAILY #30 tab 04/05/21 Allergies Allergy/AdvReac Type Severity Reaction Status Date / Time Penicillins Allergy Unknown Verified 07/19/21 12:40 Review of Systems Review of Systems: Constitutional:No Fever, No Chills, No Fatigue, No Malaise ENT/Mouth: No Ear Pain, No Nasal Congestion, No sore throat, No Swallowing Difficulty Eyes: No Eye Pain, No Discharge, No Vision Changes Cardiovascular: No Chest Pain, No SOB, No Edema, No Palpitations Respiratory: No Cough, No Dyspnea Gastrointestinal: No Nausea, No Vomiting, No Diarrhea, No Abdominal pain Musculoskeletal: No joint pain Skin: No Skin Lesions, No rash Neuro: No Weakness, No Numbness, No Paresthesias, No Dizziness, No Headache Psych: No Depression, No SI/HI, No Social Issues Yes all other systems are reviewed and are negative [facility] Past Medical History Medical History Diabetes HTN (hypertension) Neuropathy Social History Social History Alcohol intake: never Patient Tobacco Use Status: Current everyday Tobacco user Substance Use Type: Marijuana Advance Directives: No Advance Directives Information Provided: No Healthcare Proxy: No Guardian: No Physical Exam Vital Signs: Vital Signs: Last Vital Signs Temp 98.2 F 07/19/21 12:40 Pulse 89 07/19/21 12:40 Resp 18 07/19/21 17:23 BP 151/67 H 07/19/21 12:40 Pulse Ox 99 07/19/21 12:40 Body Mass Index 24.1 Const: General: cooperative, healthy appearing and no acute distress Orientation/consciousness: patient oriented x3 Limitations: no limitations HENMT: Head: Yes normal to inspection and Yes atraumatic Ears: hearing grossly normal bilaterally General nose exam: Normal external nose present Face and sinus: Yes normal facial exam Eyes: General: appearance normal, both eyes and all related structures EOM: EOMs intact bilaterally Neck: Neck: Yes normal visual inspection and Yes no meningeal signs Resp: Effort & Inspection: normal respiratory effort Auscultation: clear to auscultation bilaterally, no rhonchi and no wheezes Cardio: Rate: regular rate Heart sounds: S1 normal heart sound present and S2 normal heart sound present GI: Inspection: Yes normal to inspection Palpation (GI): Soft to palpation, nontender, no guarding and not rigid Skin: Rashes: no rashes Wounds: no wounds Neuro: General: patient oriented x3, gait normal, tone normal, moves all extremities and no meningeal signs Gait exam (Neuro): Normal gait present Extrem: General: Yes normal to inspection Psych: Appearance: grossly normal Attitude: cooperative Thought content: suicidality and no homicidality Insight: Poor insight present (Psych) Course Course Course Narrative: -1549--leukocytosis of 15.8, appears chronic. H&H stable -elevated at 5.2, glucose 324, no anion gap, magnesium 1.5 > p.o. repletion ordered -UA and tox unremarkable XR chest 1V IMPRESSION: Unremarkable examination. ? -repeat POC 229 after IVF. Patient medically cleared to go to [facility] for evaluation. Physician observation initiated at 4:53 p.m. -acetone negative -1999--ED care transferred to Dr. Kumar pending care team evaluation MDM - Psych MDM Narrative Medical decision making narrative: 56-year-old male with a PMHx of diabetes, HTN, neuropathy, presenting to the ED c/o hyperglycemia. POC per EMS 450. Patient reports compliance with diabetic medications. Additional history obtained from that patient has been acting a erratic/impulsive. On exam VSS, NAD/well appearing, A&O x3, appropriate in the ED. Of note was recently seen and treated in our ED on 07/17 and reportedly at [facility] yesterday for similar symptoms. Concern for hyperglycemia vs DKA vs other metabolic or infectious etiology causing erratic behavior. Plan: Labs, UA, CXR, IVF, reassess/care Team consult Medical Records Attestation: I reviewed the patient's medical records. Lab Data Attestation: I reviewed the patient's lab results. Result diagrams: 07/19/21 14:10 07/19/21 14:10 Labs: Lab Results 07/19/21 07/19/21 07/19/21 Range/Units 13:55 14:10 14:10 WBC 15.8 H (4.8-10.8) X10*3/uL RBC 4.41 L (4.60-5.80) X10*6/uL Hgb 13.2 L (14.0-18.0) g/dl Hct 40.0 L (42-52) % MCV 90.7 (80-98) fL MCH 29.9 (27.0-33.0) pg MCHC 33.0 (31.0-36.0) g/dl RDW 13.3 (11.0-16.0) % Plt Count 288 (160-400) X10*3/uL MPV 10.1 (9.4-12.4) fL Immature Gran % (Auto) 0.6 H (0.0-0.4) % Neut % (Auto) 73.2 H (45-73) % Lymph % (Auto) 20.7 (20-40) % [place] % (Auto) 4.2 (2-11) % Eos % (Auto) 0.9 (0-4) % Baso % (Auto) 0.4 (0-2) % Lymph # (Auto) 3.3 (1.2-4.9) X10*3/uL [place] # (Auto) 0.7 (0.1-1.2) X10*3/uL Eos # (Auto) 0.1 (0.0-0.4) X10*3/uL Baso # (Auto) 0.1 (0.0-0.2) X10*3/uL Abs Immat Gran (auto) 0.09 H (0.00-0.03) X10*3/uL Absolute Neuts (auto) 11.6 H (2.0-8.3) X10*3/uL Absolute Nucleated RBC 0.000 (0.0-0.012) X10*3/uL Nucleated RBC % (auto) 0.0 (0.0-0.2) /100WBC Sodium 137 (135-145) mmol/L Potassium 5.2 H (3.3-5.1) mmol/L Chloride 105 (96-108) mmol/L Carbon Dioxide 23 (22-29) mmol/L Anion Gap 14 (12-20) BUN 19 H (9-16) mg/dL Creatinine 1.02 (0.5-1.4) mg/dL Estim Creat Clear Calc 71.1 Estimated GFR > 60 POC Glucose 316 H (60-115) mg/dL Random Glucose 324 H (60-115) mg/dL Calcium 9.4 (8.4-10.2) mg/dL Magnesium 1.5 L (1.6-2.6) mg/dL Total Bilirubin 0.3 (0.0-1.0) mg/dL Direct Bilirubin < 0.2 (0.0-0.5) mg/dL AST 16 (5-37) U/L ALT 13 (0-40) U/L Alkaline Phosphatase 91 (39-117) U/L Ammonia (13-55) umol/L Total Protein 7.0 (6.5-8.0) g/dL Albumin 4.1 (3.5-5.0) g/dL Lipase 38 (8-78) U/L Urine Color Urine Appearance Urine pH (5.0-8.0) Ur Specific [place] (1.005-1.025) Urine Protein (NEG-TRACE) MG/DL Urine Glucose (UA) (NEG) MG/DL Urine Ketones (NEG) MG/DL Urine Blood (NEG) Urine Nitrite (NEG) Ur Leukocyte Esterase (NEG) Urine RBC (0) /HPF Urine WBC (0-4) /HPF Ur Squamous Epith Cells /LPF Urine Bacteria /LPF Salicylates < 5.0 L (15-30) mg/dL Urine Opiates Screen (Not Detect) Urine Fentanyl Screen (Not Detect) Acetaminophen < 1 (<30) mcg/mL Ur Barbiturates Screen (Not Detect) Ur Phencyclidine Scrn (Not Detect) Ur Amphetamines Screen (Not Detect) U Benzodiazepines Scrn (Not Detect) Urine Cocaine Screen (Not Detect) U Marijuana (THC) Screen (Not Detect) Acetone, Qual Negative (Negative) COVID-19 (ITALO) (Negative) COVID-19 Clin Com 07/19/21 07/19/21 07/19/21 Range/Units 14:10 14:10 14:29 WBC (4.8-10.8) X10*3/uL RBC (4.60-5.80) X10*6/uL Hgb (14.0-18.0) g/dl Hct (42-52) % MCV (80-98) fL MCH (27.0-33.0) pg MCHC (31.0-36.0) g/dl RDW (11.0-16.0) % Plt Count (160-400) X10*3/uL MPV (9.4-12.4) fL Immature Gran % (Auto) (0.0-0.4) % Neut % (Auto) (45-73) % Lymph % (Auto) (20-40) % [place] % (Auto) (2-11) % Eos % (Auto) (0-4) % Baso % (Auto) (0-2) % Lymph # (Auto) (1.2-4.9) X10*3/uL [place] # (Auto) (0.1-1.2) X10*3/uL Eos # (Auto) (0.0-0.4) X10*3/uL Baso # (Auto) (0.0-0.2) X10*3/uL Abs Immat Gran (auto) (0.00-0.03) X10*3/uL Absolute Neuts (auto) (2.0-8.3) X10*3/uL Absolute Nucleated RBC (0.0-0.012) X10*3/uL Nucleated RBC % (auto) (0.0-0.2) /100WBC Sodium (135-145) mmol/L Potassium (3.3-5.1) mmol/L Chloride (96-108) mmol/L Carbon Dioxide (22-29) mmol/L Anion Gap (12-20) BUN (9-16) mg/dL Creatinine (0.5-1.4) mg/dL Estim Creat Clear Calc Estimated GFR POC Glucose (60-115) mg/dL Random Glucose (60-115) mg/dL Calcium (8.4-10.2) mg/dL Magnesium (1.6-2.6) mg/dL Total Bilirubin (0.0-1.0) mg/dL Direct Bilirubin (0.0-0.5) mg/dL AST (5-37) U/L ALT (0-40) U/L Alkaline Phosphatase (39-117) U/L Ammonia 16 (13-55) umol/L Total Protein (6.5-8.0) g/dL Albumin (3.5-5.0) g/dL Lipase (8-78) U/L Urine Color YELLOW Urine Appearance CLEAR Urine pH 6.0 (5.0-8.0) Ur Specific [place] <= 1.005 (1.005-1.025) Urine Protein NEG (NEG-TRACE) MG/DL Urine Glucose (UA) >=1000 H (NEG) MG/DL Urine Ketones NEG (NEG) MG/DL Urine Blood NEG (NEG) Urine Nitrite NEG (NEG) Ur Leukocyte Esterase NEG (NEG) Urine RBC 0 (0) /HPF Urine WBC 0 (0-4) /HPF Ur Squamous Epith Cells NONE /LPF Urine Bacteria NONE /LPF Salicylates (15-30) mg/dL Urine Opiates Screen (Not Detect) Urine Fentanyl Screen (Not Detect) Acetaminophen (<30) mcg/mL Ur Barbiturates Screen (Not Detect) Ur Phencyclidine Scrn (Not Detect) Ur Amphetamines Screen (Not Detect) U Benzodiazepines Scrn (Not Detect) Urine Cocaine Screen (Not Detect) U Marijuana (THC) Screen (Not Detect) Acetone, Qual (Negative) COVID-19 (ITALO) Negative (Negative) COVID-19 Clin Com See Note 07/19/21 07/19/21 Range/Units 14:29 16:13 WBC (4.8-10.8) X10*3/uL RBC (4.60-5.80) X10*6/uL Hgb (14.0-18.0) g/dl Hct (42-52) % MCV (80-98) fL MCH (27.0-33.0) pg MCHC (31.0-36.0) g/dl RDW (11.0-16.0) % Plt Count (160-400) X10*3/uL MPV (9.4-12.4) fL Immature Gran % (Auto) (0.0-0.4) % Neut % (Auto) (45-73) % Lymph % (Auto) (20-40) % [place] % (Auto) (2-11) % Eos % (Auto) (0-4) % Baso % (Auto) (0-2) % Lymph # (Auto) (1.2-4.9) X10*3/uL [place] # (Auto) (0.1-1.2) X10*3/uL Eos # (Auto) (0.0-0.4) X10*3/uL Baso # (Auto) (0.0-0.2) X10*3/uL Abs Immat Gran (auto) (0.00-0.03) X10*3/uL Absolute Neuts (auto) (2.0-8.3) X10*3/uL Absolute Nucleated RBC (0.0-0.012) X10*3/uL Nucleated RBC % (auto) (0.0-0.2) /100WBC Sodium (135-145) mmol/L Potassium (3.3-5.1) mmol/L Chloride (96-108) mmol/L Carbon Dioxide (22-29) mmol/L Anion Gap (12-20) BUN (9-16) mg/dL Creatinine (0.5-1.4) mg/dL Estim Creat Clear Calc Estimated GFR POC Glucose 229 H (60-115) mg/dL Random Glucose (60-115) mg/dL Calcium (8.4-10.2) mg/dL Magnesium (1.6-2.6) mg/dL Total Bilirubin (0.0-1.0) mg/dL Direct Bilirubin (0.0-0.5) mg/dL AST (5-37) U/L ALT (0-40) U/L Alkaline Phosphatase (39-117) U/L Ammonia (13-55) umol/L Total Protein (6.5-8.0) g/dL Albumin (3.5-5.0) g/dL Lipase (8-78) U/L Urine Color Urine Appearance Urine pH (5.0-8.0) Ur Specific [place] (1.005-1.025) Urine Protein (NEG-TRACE) MG/DL Urine Glucose (UA) (NEG) MG/DL Urine Ketones (NEG) MG/DL Urine Blood (NEG) Urine Nitrite (NEG) Ur Leukocyte Esterase (NEG) Urine RBC (0) /HPF Urine WBC (0-4) /HPF Ur Squamous Epith Cells /LPF Urine Bacteria /LPF Salicylates (15-30) mg/dL Urine Opiates Screen Not Detected (Not Detect) Urine Fentanyl Screen Not Detected (Not Detect) Acetaminophen (<30) mcg/mL Ur Barbiturates Screen Not Detected (Not Detect) Ur Phencyclidine Scrn Not Detected (Not Detect) Ur Amphetamines Screen Not Detected (Not Detect) U Benzodiazepines Scrn Not Detected (Not Detect) Urine Cocaine Screen Not Detected (Not Detect) U Marijuana (THC) Screen Not Detected (Not Detect) Acetone, Qual (Negative) COVID-19 (ITALO) (Negative) COVID-19 Clin Com Discharge Plan Discharge Clinical Impression: Hyperglycemia, Kiya Prescriptions: No Action lisinopril 20 mg tablet 1.5 tab PO DAILY RF: 0 gabapentin 800 mg tablet 1 tab PO TID RF: 0 metformin 1,000 mg tablet 1 tab PO BID RF: 0 famotidine [Pepcid] 20 mg tablet 20 mg PO DAILY PRN (Reason: abdominal discomfort) Qty: 30 RF: 0 pioglitazone 45 mg tablet 45 mg PO DAILY Qty: 30 RF: 2
--- NOTE | 2021-07-19 15:58 | PC.NURSE ---
PT NOW A SECTION 12A. CHANGED IN [facility], BELONGINGS LOCKED UP.
--- NOTE | 2021-07-19 15:58 | PC.NURSE ---
PT , PAULINE MARTINEZ
--- NOTE | 2021-07-19 16:12 | PHA.MEDREC ---
Pharmacy Consult ? Medication Reconciliation Pharmacy has completed the medication reconciliation. Spoke with patients , she states that Gideon has been forgetting many things but claims to be taking his medications. She is not sure if he is taking more or less than he is suppose to. She said he recently went to a doctors appointment where they planned on increasing his metformin dose but she hasn't seen him take a higher dose. She believes he hasn't been filling the glipizide and she took the meloxicam away from him because he started taking it around the time he started acting strange. Beatriz Dailey, PharmD [phone]
[2021-07-19 16:17] LABS: Glucose, Whole Blood 229 mg/dL (60-115)
[2021-07-19] MEDS: Magnesium Oxide 400 MG TABLET PO (16:23)
[2021-07-19 17:23] VITALS: RESP 18
[2021-07-19] MEDS: Nicotine Polacrilex 2 MG GUM BUCCAL ×2 (19:45→22:00)
--- NOTE | 2021-07-19 19:47 | PC.NURSE ---
Patient calm and quiet at this time, signed CV, currently watching TV Milieu, no distress observed/reported, compliant with EKG procedure, pending dispo from care team, will continue to monitor.
--- NOTE | 2021-07-19 20:10 | MHC.CARE ---
Pt was assessed by CARE TEAM and found appropriate for an IP admission.
--- NOTE | 2021-07-19 20:47 | PM.PSYCN ---
History of Present Illness Chief Complaint: hyperglycemia [facility] Medical History Diabetes HTN (hypertension) Neuropathy Diagnostics Vital Signs (24Hr): Vital Signs - 24 hr 07/19/21 12:40 07/19/21 17:23 Temperature 98.2 F Pulse Rate 89 Respiratory Rate 18 18 Blood Pressure 151/67 H Pulse Oximetry 99 Body Mass Index 24.1 Labs Results: 07/19/21 14:10 07/19/21 14:10 Labs: Laboratory Results - last 48 hr 07/19/21 07/19/21 07/19/21 13:55 14:10 14:10 WBC 15.8 H RBC 4.41 L Hgb 13.2 L Hct 40.0 L MCV 90.7 MCH 29.9 MCHC 33.0 RDW 13.3 Plt Count 288 MPV 10.1 Immature Gran % (Auto) 0.6 H Neut % (Auto) 73.2 H Lymph % (Auto) 20.7 [place] % (Auto) 4.2 Eos % (Auto) 0.9 Baso % (Auto) 0.4 Lymph # (Auto) 3.3 [place] # (Auto) 0.7 Eos # (Auto) 0.1 Baso # (Auto) 0.1 Abs Immat Gran (auto) 0.09 H Absolute Neuts (auto) 11.6 H Absolute Nucleated RBC 0.000 Nucleated RBC % (auto) 0.0 Sodium 137 Potassium 5.2 H Chloride 105 Carbon Dioxide 23 Anion Gap 14 BUN 19 H Creatinine 1.02 Estim Creat Clear Calc 71.1 Estimated GFR > 60 POC Glucose 316 H Random Glucose 324 H Calcium 9.4 Magnesium 1.5 L Total Bilirubin 0.3 Direct Bilirubin < 0.2 AST 16 ALT 13 Alkaline Phosphatase 91 Ammonia Total Protein 7.0 Albumin 4.1 Lipase 38 Urine Color Urine Appearance Urine pH Ur Specific [place] Urine Protein Urine Glucose (UA) Urine Ketones Urine Blood Urine Nitrite Ur Leukocyte Esterase Urine RBC Urine WBC Ur Squamous Epith Cells Urine Bacteria Salicylates < 5.0 L Urine Opiates Screen Urine Fentanyl Screen Acetaminophen < 1 Ur Barbiturates Screen Ur Phencyclidine Scrn Ur Amphetamines Screen U Benzodiazepines Scrn Urine Cocaine Screen U Marijuana (THC) Screen Acetone, Qual Negative COVID-19 (ITALO) COVID-19 Clin Com 07/19/21 07/19/2121 14:10 14:10 14:29 WBC RBC Hgb Hct MCV MCH MCHC RDW Plt Count MPV Immature Gran % (Auto) Neut % (Auto) Lymph % (Auto) [place] % (Auto) Eos % (Auto) Baso % (Auto) Lymph # (Auto) [place] # (Auto) Eos # (Auto) Baso # (Auto) Abs Immat Gran (auto) Absolute Neuts (auto) Absolute Nucleated RBC Nucleated RBC % (auto) Sodium Potassium Chloride Carbon Dioxide Anion Gap BUN Creatinine Estim Creat Clear Calc Estimated GFR POC Glucose Random Glucose Calcium Magnesium Total Bilirubin Direct Bilirubin AST ALT Alkaline Phosphatase Ammonia 16 Total Protein Albumin Lipase Urine Color YELLOW Urine Appearance CLEAR Urine pH 6.0 Ur Specific [place] <= 1.005 Urine Protein NEG Urine Glucose (UA) >=1000 H Urine Ketones NEG Urine Blood NEG Urine Nitrite NEG Ur Leukocyte Esterase NEG Urine RBC 0 Urine WBC 0 Ur Squamous Epith Cells NONE Urine Bacteria NONE Salicylates Urine Opiates Screen Urine Fentanyl Screen Acetaminophen Ur Barbiturates Screen Ur Phencyclidine Scrn Ur Amphetamines Screen U Benzodiazepines Scrn Urine Cocaine Screen U Marijuana (THC) Screen Acetone, Qual COVID-19 (ITALO) Negative COVID-19 Clin Com See Note 07/19/21 07/19/21 14:29 16:13 WBC RBC Hgb Hct MCV MCH MCHC RDW Plt Count MPV Immature Gran % (Auto) Neut % (Auto) Lymph % (Auto) [place] % (Auto) Eos % (Auto) Baso % (Auto) Lymph # (Auto) [place] # (Auto) Eos # (Auto) Baso # (Auto) Abs Immat Gran (auto) Absolute Neuts (auto) Absolute Nucleated RBC Nucleated RBC % (auto) Sodium Potassium Chloride Carbon Dioxide Anion Gap BUN Creatinine Estim Creat Clear Calc Estimated GFR POC Glucose 229 H Random Glucose Calcium Magnesium Total Bilirubin Direct Bilirubin AST ALT Alkaline Phosphatase Ammonia Total Protein Albumin Lipase Urine Color Urine Appearance Urine pH Ur Specific [place] Urine Protein Urine Glucose (UA) Urine Ketones Urine Blood Urine Nitrite Ur Leukocyte Esterase Urine RBC Urine WBC Ur Squamous Epith Cells Urine Bacteria Salicylates Urine Opiates Screen Not Detected Urine Fentanyl Screen Not Detected Acetaminophen Ur Barbiturates Screen Not Detected Ur Phencyclidine Scrn Not Detected Ur Amphetamines Screen Not Detected U Benzodiazepines Scrn Not Detected Urine Cocaine Screen Not Detected U Marijuana (THC) Screen Not Detected Acetone, Qual COVID-19 (ITALO) COVID-19 Clin Com Imaging Radiology Impressions: ITS Impressions Chest X-Ray 07/19/21 14:30 IMPRESSION: Unremarkable examination. Medications Medications Current Medications Generic Name Dose Route Start Last Admin Trade Name Freq PRN Reason Stop Dose Admin Nicotine Polacrilex 2 mg 07/19/21 20:12 Nicotine Polacrilex 2 Mg Gum BUCCAL Q2H PRN Nicotine Cravings Pharmacy Consult 1 each 07/19/21 15:49 Consult Rx Perform Med Rec MISCELLANE ONCE PRN Consult order Allergies Allergies Allergy/AdvReac Type Severity Reaction Status Date / Time Penicillins Allergy Unknown Verified 07/19/21 12:40 Assessment & Plan Greater than 50% of the session was spent on counseling and/or coordination of care
[2021-07-19 21:22] LABS: Glucose, Whole Blood 432 mg/dL (60-115)
[2021-07-19] MEDS: glipiZIDE 10 MG TABLET PO (21:43)
[2021-07-19] MEDS: metFORMIN HCl 1,000 MG TABLET 1000 MG PO (21:43)
[2021-07-19 21:46] VITALS: BP 141/93; PULSE 98; TEMP 36.6; O2SAT 98
[2021-07-19] MEDS: OLANZapine 5 MG TABLET PO (21:50)
--- NOTE | 2021-07-19 22:00 | PC.NURSE ---
Patient POC was 432, provider notified/verbally ordered/Metformin 100 mg and Glipizide 10 mg, ordered entered/confirmed with provider/approved/administered as ordered patient compliant.
[2021-07-19 22:05] VITALS: BP 135/69; PULSE 101; RESP 18; TEMP 36.6; O2SAT 99
[2021-07-19 22:06] VITALS: BP 135/69; PULSE 101; RESP 18; TEMP 36.6; O2SAT 99
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
--- NOTE | 2021-07-19 23:00 | PC.ADMIT ---
PT. IS A 56 YEAR OLD WHITE IRAQI SPEAKING MALE WHO PRESENTS TO M 5 FROM [facility] ED AT APPROX. 21:55 ON A CV STATUS. PT. PUT IN A 3 DAY NOTICE UPON ARRIVAL ON UNIT, UP ON Thursday07/23/21. PT. IS COVID NEG, UTOX WAS NEG. FOR SUBSTANCES. PT. IS UNKNOWN TO M 5, HE DENIED ANY PREVIOUS MENTAL HEALTH ADMISSIONS/CARE. PT. REPORTED HE WENT TO SEVERAL ED'S DUE TO HIS BS BEING IN THE 500'S TO GET HIS MEDICATION CHANGED .PT. STATED I KNOW WHAT I'M DOING, VERY AWARE, I JUST NEED DIFFERENT MEDICATION. I HAVE DONE NOTHING WRONG .PT. WAS ANXIOUS, GUARDED AND SUSPICIOUS DURING THE ADMISSION PROCESS. HE REPORTED I HAVE SLEPT ONLY 4 HOURS IN THE PAST 3 DAYS . PT.'S REPORTED ERRATIC BEHAVIOR FOR A WEEK, PT. HAS A HX OF BIPOLAR, HE HAS NOT TAKEN ANY PRESCRIBED MEDICATIONS AT PRESENT TIME. PT. WAS COOPERATIVE DURING THE ADMISSION PROCESS, HE SIGNED ALL CONSENTS, HE WAS ORIENTED TO UNIT, HE WAS PUT ON 15 MIN. SAFETY CHECKS. PT. IS A DAILY CIGARETTE SMOKER AND WAS PLACED ON NICOTINE REPLACEMENT. HIS VS ARE STABLE , MED. ORDERS RECEIVED BY GINNY DOMINGO NP.
[2021-07-20 06:00] VITALS: BP 174/76; PULSE 106; TEMP 36.6; O2SAT 98
[2021-07-20 06:50] LABS: Glucose, Whole Blood 106 mg/dL (60-115)
[2021-07-20] MEDS: Pioglitazone HCL 45 MG TABLET PO (08:24)
[2021-07-20 08:25] VITALS: BP 174/76; PULSE 106
[2021-07-20] MEDS: glipiZIDE 10 MG TABLET PO (08:25)
[2021-07-20] MEDS: metFORMIN HCl 1,000 MG TABLET 1000 MG PO ×2 (08:25→17:46)
[2021-07-20] MEDS: lisinopriL 10 MG TABLET 30 MG PO (08:25)
[2021-07-20] MEDS: Ziprasidone 40 MG CAPSULE PO ×2 (08:25→20:21)
[2021-07-20] MEDS: Gabapentin 400 MG CAPSULE 800 MG PO ×3 (08:25→20:21)
[2021-07-20] MEDS: Nicotine Polacrilex 2 MG GUM BUCCAL ×2 (09:34→15:43)
[2021-07-20 09:56] VITALS: BP 136/63; PULSE 102
[2021-07-20] MEDS: Acetaminophen 325 MG TABLET 650 MG PO (13:23)
[2021-07-20 16:30] VITALS: BP 158/72; PULSE 89
[2021-07-20 17:46] LABS: Glucose, Whole Blood 383 mg/dL (60-115)
[2021-07-20 19:58] LABS: Glucose, Whole Blood 447 mg/dL (60-115)
[2021-07-20] MEDS: Insulin Lispro 100 UNIT/ML 3 ML VIAL 10 UNIT SUBCUT (20:23)
--- NOTE | 2021-07-20 21:49 | HO.PSYCHPN ---
Subjective Subjective Date of Service: 07/20/21 Reason For Visit: Karon Medical Problems Affecting Mental Status: Yes (DM, High blood sugar values) Interim History: I am telling you the truth, I have no idea why I ended up here. Reviewed with pt issues precipitating admission and wifes concerns. Pt believes she is misguided, states she has a PTSD hx and asked for the wrong type of help for me. Pt has explanations for all precipitants reviewed, however, is able to abstract and understand why everyone was so concerned. He has signed a TDN and hopes to be discharged by 07/24. He is tolerating medications. Blood sugars continue to be high. He declines an SS Insulin dosage. 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: Yes Side effects from medications: No Attending Groups: Yes Review of Systems Acute medical concerns: Yes Hyperglycemia Medical Review of Systems: unchanged Review of Systems Reports behavioral changes Psychiatric: Reports abnormal sleep pattern, Reports anxiety, Reports behavioral changes, Reports change in appetite and Reports mood swings Mental Status Exam Mental Status Exam Patient Appearance: Appropriate Patient Orientation: Person, Place, Time and Situation Level of Consciousness: Alert Patient Behavior: Appropriate, Talkative and Cooperative Mood Description: Calm Affect Description: Calm Patient Cognition Impaired: No Ability to Follow Directions: Good Speech Pattern: Spontaneous Speech Memory Description: Episodic Impaired Hallucinations: None Delusions: Not Present Thought Process: Intact and Goal Oriented Thought Content: positive for Goal Oriented Judgement: Fair Diagnostics Vital Signs (24Hr): Vital Signs - 24 hr 07/19/21 22:05 07/19/21 22:06 07/20/21 06:00 Temperature 97.9 F 97.9 F 97.9 F Pulse Rate 101 H 101 H 106 H Respiratory Rate 18 18 Blood Pressure 135/69 135/69 174/76 H Pulse Oximetry 99 99 98 07/20/21 08:25 07/20/21 09:56 07/20/21 16:30 Temperature Pulse Rate 106 H 102 H 89 Respiratory Rate Blood Pressure 174/76 H 136/63 158/72 H Pulse Oximetry Body Mass Index 24.1 Labs Results: 07/19/21 14:10 07/19/21 14:10 Labs: Laboratory Results - last 48 hr 07/19/21 07/19/21 07/19/21 13:55 14:10 14:10 WBC 15.8 H RBC 4.41 L Hgb 13.2 L Hct 40.0 L MCV 90.7 MCH 29.9 MCHC 33.0 RDW 13.3 Plt Count 288 MPV 10.1 Immature Gran % (Auto) 0.6 H Neut % (Auto) 73.2 H Lymph % (Auto) 20.7 [place] % (Auto) 4.2 Eos % (Auto) 0.9 Baso % (Auto) 0.4 Lymph # (Auto) 3.3 [place] # (Auto) 0.7 Eos # (Auto) 0.1 Baso # (Auto) 0.1 Abs Immat Gran (auto) 0.09 H Absolute Neuts (auto) 11.6 H Absolute Nucleated RBC 0.000 Nucleated RBC % (auto) 0.0 Sodium 137 Potassium 5.2 H Chloride 105 Carbon Dioxide 23 Anion Gap 14 BUN 19 H Creatinine 1.02 Estim Creat Clear Calc 71.1 Estimated GFR > 60 POC Glucose 316 H Random Glucose 324 H Calcium 9.4 Magnesium 1.5 L Total Bilirubin 0.3 Direct Bilirubin < 0.2 AST 16 ALT 13 Alkaline Phosphatase 91 Ammonia Total Protein 7.0 Albumin 4.1 Lipase 38 Urine Color Urine Appearance Urine pH Ur Specific [place] Urine Protein Urine Glucose (UA) Urine Ketones Urine Blood Urine Nitrite Ur Leukocyte Esterase Urine RBC Urine WBC Ur Squamous Epith Cells Urine Bacteria Salicylates < 5.0 L Urine Opiates Screen Urine Fentanyl Screen Acetaminophen < 1 Ur Barbiturates Screen Ur Phencyclidine Scrn Ur Amphetamines Screen U Benzodiazepines Scrn Urine Cocaine Screen U Marijuana (THC) Screen Acetone, Qual Negative COVID-19 (ITALO) COVID-19 Clin Com 07/19/21 07/19/21 07/19/21 14:10 14:10 14:29 WBC RBC Hgb Hct MCV MCH MCHC RDW Plt Count MPV Immature Gran % (Auto) Neut % (Auto) Lymph % (Auto) [place] % (Auto) Eos % (Auto) Baso % (Auto) Lymph # (Auto) [place] # (Auto) Eos # (Auto) Baso # (Auto) Abs Immat Gran (auto) Absolute Neuts (auto) Absolute Nucleated RBC Nucleated RBC % (auto) Sodium Potassium Chloride Carbon Dioxide Anion Gap BUN Creatinine Estim Creat Clear Calc Estimated GFR POC Glucose Random Glucose Calcium Magnesium Total Bilirubin Direct Bilirubin AST ALT Alkaline Phosphatase Ammonia 16 Total Protein Albumin Lipase Urine Color YELLOW Urine Appearance CLEAR Urine pH 6.0 Ur Specific [place] <= 1.005 Urine Protein NEG Urine Glucose (UA) >=1000 H Urine Ketones NEG Urine Blood NEG Urine Nitrite NEG Ur Leukocyte Esterase NEG Urine RBC 0 Urine WBC 0 Ur Squamous Epith Cells NONE Urine Bacteria NONE Salicylates Urine Opiates Screen Urine Fentanyl Screen Acetaminophen Ur Barbiturates Screen Ur Phencyclidine Scrn Ur Amphetamines Screen U Benzodiazepines Scrn Urine Cocaine Screen U Marijuana (THC) Screen Acetone, Qual COVID-19 (ITALO) Negative COVID-19 Clin Com See Note 07/19/21 07/19/21 07/19/21 14:29 16:13 21:19 WBC RBC Hgb Hct MCV MCH MCHC RDW Plt Count MPV Immature Gran % (Auto) Neut % (Auto) Lymph % (Auto) [place] % (Auto) Eos % (Auto) Baso % (Auto) Lymph # (Auto) [place] # (Auto) Eos # (Auto) Baso # (Auto) Abs Immat Gran (auto) Absolute Neuts (auto) Absolute Nucleated RBC Nucleated RBC % (auto) Sodium Potassium Chloride Carbon Dioxide Anion Gap BUN Creatinine Estim Creat Clear Calc Estimated GFR POC Glucose 229 H 432 H* Random Glucose Calcium Magnesium Total Bilirubin Direct Bilirubin AST ALT Alkaline Phosphatase Ammonia Total Protein Albumin Lipase Urine Color Urine Appearance Urine pH Ur Specific [place] Urine Protein Urine Glucose (UA) Urine Ketones Urine Blood Urine Nitrite Ur Leukocyte Esterase Urine RBC Urine WBC Ur Squamous Epith Cells Urine Bacteria Salicylates Urine Opiates Screen Not Detected Urine Fentanyl Screen Not Detected Acetaminophen Ur Barbiturates Screen Not Detected Ur Phencyclidine Scrn Not Detected Ur Amphetamines Screen Not Detected U Benzodiazepines Scrn Not Detected Urine Cocaine Screen Not Detected U Marijuana (THC) Screen Not Detected Acetone, Qual COVID-19 (ITALO) COVID-19 Clin Com 07/20/21 07/20/21 07/20/21 06:45 17:43 19:54 WBC RBC Hgb Hct MCV MCH MCHC RDW Plt Count MPV Immature Gran % (Auto) Neut % (Auto) Lymph % (Auto) [place] % (Auto) Eos % (Auto) Baso % (Auto) Lymph # (Auto) [place] # (Auto) Eos # (Auto) Baso # (Auto) Abs Immat Gran (auto) Absolute Neuts (auto) Absolute Nucleated RBC Nucleated RBC % (auto) Sodium Potassium Chloride Carbon Dioxide Anion Gap BUN Creatinine Estim Creat Clear Calc Estimated GFR POC Glucose 106 383 H* 447 H* Random Glucose Calcium Magnesium Total Bilirubin Direct Bilirubin AST ALT Alkaline Phosphatase Ammonia Total Protein Albumin Lipase Urine Color Urine Appearance Urine pH Ur Specific [place] Urine Protein Urine Glucose (UA) Urine Ketones Urine Blood Urine Nitrite Ur Leukocyte Esterase Urine RBC Urine WBC Ur Squamous Epith Cells Urine Bacteria Salicylates Urine Opiates Screen Urine Fentanyl Screen Acetaminophen Ur Barbiturates Screen Ur Phencyclidine Scrn Ur Amphetamines Screen U Benzodiazepines Scrn Urine Cocaine Screen U Marijuana (THC) Screen Acetone, Qual COVID-19 (ITALO) COVID-19 Clin Com Imaging Radiology Impressions: ITS Impressions Chest X-Ray 07/19/21 14:30 IMPRESSION: Unremarkable examination. Medications Medications Current Medications Generic Name Dose Route Start Last Admin Trade Name Freq PRN Reason Stop Dose Admin Acetaminophen 650 mg 07/19/21 21:44 07/20/21 13:23 Acetaminophen 325 Mg Tablet PO 650 mg Q6H PRN Administration Headache/Pain Mild Scale (1-3) Al Hydroxide/Mg Hydroxide 30 ml 07/19/21 21:44 Magnesium Hydrox/Alum Hydrox 30 Ml Oral.Susp PO Q6H PRN Heartburn/Nausea Dextrose 25 gm 07/20/21 20:08 Dextrose 50 % 25 Gm/50 Ml Vial IVPUSH Q15M PRN per Hypoglycemia Standing Ord. Protocol Famotidine 20 mg 07/19/21 21:56 Famotidine 20 Mg Tablet PO DAILY PRN abdominal discomfort Gabapentin 800 mg 07/20/21 09:00 07/20/21 20:21 Gabapentin 400 Mg Capsule PO 800 mg TID BERNA Administration Glipizide 10 mg 07/20/21 09:00 07/20/21 08:25 Glipizide 10 Mg Tablet PO 10 mg DAILY BERNA Administration Glucose 15 gm 07/20/21 20:08 Glucose Gel 15 Gm Gel..Gram. PO Q15M PRN per Hypoglycemia Standing Ord. Protocol Hydroxyzine HCl 25 mg 07/19/21 21:44 Hydroxyzine Hcl 25 Mg Tablet PO Q6H PRN Anxiety Insulin Human Lispro 0 unit 07/20/21 21:00 07/20/21 20:30 Insulin Lispro 100 Unit/Ml 3 Ml Vial SUBCUT Not Given [facility] Protocol Lisinopril 30 mg 07/20/21 09:00 07/20/21 08:25 Lisinopril 10 Mg Tablet PO 30 mg DAILY BERNA Administration Protocol Magnesium Hydroxide 30 ml 07/19/21 21:44 Milk Of Magnesia 30 Ml Oral.Susp PO DAILY PRN Constipation Metformin HCl 1,000 mg 07/20/21 08:00 07/20/21 17:46 Metformin Hcl 1,000 Mg Tablet PO 1,000 mg BIDWM BERNA Administration Nicotine Polacrilex 2 mg 07/19/21 20:12 07/20/21 15:43 Nicotine Polacrilex 2 Mg Gum BUCCAL 2 mg Q2H PRN Administration Nicotine Cravings Pioglitazone HCl 45 mg 07/20/21 09:00 07/20/21 08:24 Pioglitazone Hcl 45 Mg Tablet PO 45 mg DAILY BERNA Administration Trazodone HCl 50 mg 07/19/21 21:44 Trazodone Hcl 50 Mg Tablet PO BEDTIME PRN Insomnia Ziprasidone 40 mg 07/20/21 09:00 07/20/21 20:21 Ziprasidone 40 Mg Capsule PO 40 mg BID BERNA Administration Allergies Allergies Allergy/AdvReac Type Severity Reaction Status Date / Time Penicillins Allergy Unknown Verified 07/19/21 12:40 Assessment & Plan Assessment & Plan (1) Karon: Status: Acute Code(s): F30.9 - Manic episode, unspecified Assessment and Plan: (2) Bipolar 1 disorder: Status: Acute Code(s): F31.9 - Bipolar disorder, unspecified Assessment and Plan: Gideon is a 56 y.o. Male who carries a dx of bipolar disorder. He presented to [facility] ED reporting issues with hyperglycemia, fixated on getting his diabetes medications adjusted. He is currently presenting with sx of hypomania/ karon including impulsive and errative behaviors, agitation, hyposomnia, and decline in self care. He has medication management with gabapentin for neuropathy but does not have OP psych treatment/ management. He reports remote hx of medication management for depression but does not remember past med trials. He is constricted and minimizing of his symptoms but does agree that his mental status is not at baseline and is consenting to treatment. He was administered zyprexa 5 mg in the ED setting with good effect. Discussed treatment with AAP for mood stabilization, does not want anything wt gaining due to co-morbid diabetes. Plan: 1. Continue geodon 40 mg BID for mood stability, reviewed risks and benefits, no prolonged QTc. 2. Continue gabapentin 800 mg TID, prescribed for neuropathy but may help with mood stability. 3. Monitor response to medications. Monitor for safety in the milieu. Discharge on stabilization. Patient seen. Chart reviewed. Discussed with team. Obtain collateral contact info?as needed Greater than 50% of the session was spent on counseling and/or coordination of care Reason for contiued inpatient stay Substantial Risk for: harm to self, inability to function, rapid decompensation and med/psych decompensation
[2021-07-21 01:24] LABS: Glucose, Whole Blood 193 mg/dL (60-115)
[2021-07-21 06:00] VITALS: BP 137/80; PULSE 100; TEMP 36.4; O2SAT 96
[2021-07-21 06:12] LABS: Glucose, Whole Blood 209 mg/dL (60-115)
[2021-07-21 08:40] VITALS: BP 137/80; PULSE 100
[2021-07-21] MEDS: Gabapentin 400 MG CAPSULE 800 MG PO ×3 (08:40→20:45)
[2021-07-21] MEDS: lisinopriL 10 MG TABLET 30 MG PO (08:40)
[2021-07-21] MEDS: Ziprasidone 40 MG CAPSULE PO ×2 (08:40→20:45)
[2021-07-21] MEDS: Acetaminophen 325 MG TABLET 650 MG PO (08:40)
[2021-07-21] MEDS: Insulin Lispro 100 UNIT/ML 3 ML VIAL SUBCUT ×3 (08:41→20:41)
[2021-07-21] MEDS: glipiZIDE 10 MG TABLET PO (08:41)
[2021-07-21] MEDS: Pioglitazone HCL 45 MG TABLET PO (08:41)
[2021-07-21] MEDS: metFORMIN HCl 1,000 MG TABLET 1000 MG PO ×2 (08:41→16:44)
[2021-07-21] MEDS: Nicotine Polacrilex 2 MG GUM BUCCAL ×3 (09:23→20:45)
[2021-07-21 09:35] VITALS: BP 119/62; PULSE 96; O2SAT 98
[2021-07-21 09:38] LABS: Glucose, Whole Blood 334 mg/dL (60-115)
[2021-07-21 12:11] LABS: Glucose, Whole Blood 256 mg/dL (60-115)
[2021-07-21 16:41] LABS: Glucose, Whole Blood 149 mg/dL (60-115)
[2021-07-21 17:03] VITALS: BP 136/73; PULSE 92; RESP 18; TEMP 36.1; O2SAT 100
--- NOTE | 2021-07-21 18:38 | P.PNPSI_ITS ---
Subjective Subjective Date of Service: 07/21/21 Reason For Visit: Kiya Interim History: Pt seen by hospitalist for insulin initiation due to hyperglycemia. Anxious to discharge this week. Tolerating medication changes Willing to have a family meeting to discuss wifes concerns prior to discharge. Medication Compliance: Yes Side effects from medications: No Attending Groups: Yes Review of Systems Acute medical concerns: Yes hyperglycemia Review of Systems Reports behavioral changes Psychiatric: Reports abnormal sleep pattern, Reports anxiety, Reports behavioral changes, Reports change in appetite and Reports mood swings Mental Status Exam Mental Status Exam Patient Appearance: Appropriate Patient Orientation: Person, Place, Time and Situation Level of Consciousness: Alert Patient Behavior: Appropriate, Talkative and Cooperative Mood Description: Calm Affect Description: Calm Patient Cognition Impaired: No Ability to Follow Directions: Good Speech Pattern: Spontaneous Speech Memory Description: Episodic Impaired Hallucinations: None Delusions: Not Present Thought Process: Intact and Goal Oriented Thought Content: positive for Goal Oriented Judgement: Fair Diagnostics Vital Signs (24Hr): Vital Signs - 24 hr 07/21/21 06:00 07/21/21 08:40 07/21/21 09:35 Temperature 97.6 F Pulse Rate 100 100 96 Respiratory Rate Blood Pressure 137/80 137/80 119/62 Pulse Oximetry 96 98 07/21/21 17:03 Temperature 97.0 F Pulse Rate 92 Respiratory Rate 18 Blood Pressure 136/73 Pulse Oximetry 100 Body Mass Index 24.1 Labs Results: 07/19/21 14:10 07/19/21 14:10 Labs: Laboratory Results - last 48 hr 07/19/21 07/20/21 07/20/21 21:19 06:45 17:43 POC Glucose 432 H* 106 383 H* 07/20/21 07/21/21 07/21/21 19:54 01:19 06:05 POC Glucose 447 H* 193 H 209 H 07/21/21 07/21/21 07/21/21 09:35 12:07 16:38 POC Glucose 334 H 256 H 149 H Imaging Radiology Impressions: ITS Impressions Chest X-Ray 07/19/21 14:30 IMPRESSION: Unremarkable examination. Medications Medications Current Medications Generic Name Dose Route Start Last Admin Trade Name Freq PRN Reason Stop Dose Admin Acetaminophen 650 mg 07/19/21 21:44 07/21/21 08:40 Acetaminophen 325 Mg Tablet PO 650 mg Q6H PRN Administration Headache/Pain Mild Scale (1-3) Al Hydroxide/Mg Hydroxide 30 ml 07/19/21 21:44 Magnesium Hydrox/Alum Hydrox 30 Ml Oral.Susp PO Q6H PRN Heartburn/Nausea Dextrose 25 gm 07/20/21 20:08 Dextrose 50 % 25 Gm/50 Ml Vial IVPUSH Q15M PRN per Hypoglycemia Standing Ord. Protocol Famotidine 20 mg 07/19/21 21:56 Famotidine 20 Mg Tablet PO DAILY PRN abdominal discomfort Gabapentin 800 mg 07/20/21 09:00 07/21/21 14:28 Gabapentin 400 Mg Capsule PO 800 mg TID BERNA Administration Glipizide 10 mg 07/20/21 09:00 07/21/21 08:41 Glipizide 10 Mg Tablet PO 10 mg DAILY BERNA Administration Glucose 15 gm 07/20/21 20:08 Glucose Gel 15 Gm Gel..Gram. PO Q15M PRN per Hypoglycemia Standing Ord. Protocol Hydroxyzine HCl 25 mg 07/19/21 21:44 Hydroxyzine Hcl 25 Mg Tablet PO Q6H PRN Anxiety Insulin Human Lispro 0 unit 07/20/21 21:00 07/21/21 16:44 Insulin Lispro 100 Unit/Ml 3 Ml Vial SUBCUT Not Given QIDACHS [facility] Protocol Lisinopril 30 mg 07/20/21 09:00 07/21/21 08:40 Lisinopril 10 Mg Tablet PO 30 mg DAILY BERNA Administration Protocol Magnesium Hydroxide 30 ml 07/19/21 21:44 Milk Of Magnesia 30 Ml Oral.Susp PO DAILY PRN Constipation Metformin HCl 1,000 mg 07/20/21 08:00 07/21/21 16:44 Metformin Hcl 1,000 Mg Tablet PO 1,000 mg BIDWM BERNA Administration Nicotine Polacrilex 2 mg 07/19/21 20:12 07/21/21 13:15 Nicotine Polacrilex 2 Mg Gum BUCCAL 2 mg Q2H PRN Administration Nicotine Cravings Pioglitazone HCl 45 mg 07/20/21 09:00 07/21/21 08:41 Pioglitazone Hcl 45 Mg Tablet PO 45 mg DAILY BERNA Administration Trazodone HCl 50 mg 07/19/21 21:44 Trazodone Hcl 50 Mg Tablet PO BEDTIME PRN Insomnia Ziprasidone 40 mg 07/20/21 09:00 07/21/21 08:40 Ziprasidone 40 Mg Capsule PO 40 mg BID BERNA Administration Allergies Allergies Allergy/AdvReac Type Severity Reaction Status Date / Time Penicillins Allergy Unknown Verified 07/19/21 12:40 Assessment & Plan Assessment & Plan (1) Kiya: Status: Acute Code(s): F30.9 - Manic episode, unspecified Assessment and Plan: (2) Bipolar 1 disorder: Status: Acute Code(s): F31.9 - Bipolar disorder, unspecified Assessment and Plan: Gideon is a 56 y.o. Male who carries a dx of bipolar disorder. He presented to [facility] [place] reporting issues with hyperglycemia, fixated on getting his diabetes m edications adjusted. He is currently presenting with sx of hypomania/ kiya including impulsive and errative behaviors, agitation, hyposomnia, and decline in self care. He has medication management with gabapentin for neuropathy but does not have OP psych treatment/ management. He reports remote hx of medication management for depression but does not remember past med trials. He is constricted and minimizing of his symptoms but does agree that his mental status is not at baseline and is consenting to treatment. He was administered zyprexa 5 mg in the ED setting with good effect. Discussed treatment with AAP for mood stabilization, does not want anything wt gaining due to co-morbid diabetes. Plan: 1. Continue geodon 40 mg BID for mood stability, reviewed risks and benefits, no prolonged QTc. 2. Continue gabapentin 800 mg TID, prescribed for neuropathy but may help with mood stability. 3. Monitor response to medications. Monitor for safety in the milieu. Discharge on stabilization. Patient seen. Chart reviewed. Discussed with team. Obtain collateral contact info?as needed 07/21/21: Continue plan of care. Greater than 50% of the session was spent on counseling and/or coordination of care Patient educated on: therapeutic strategies Informed Consent: understands and further education needed Reason for contiued inpatient stay Substantial Risk for: harm to self, harm to others, inability to function and rapid decompensation
[2021-07-21 21:59] LABS: Glucose, Whole Blood 191 mg/dL (60-115)
[2021-07-22 06:00] VITALS: BP 135/60; PULSE 77; RESP 16; TEMP 36; O2SAT 97
[2021-07-22 06:25] LABS: Glucose, Whole Blood 225 mg/dL (60-115)
[2021-07-22] MEDS: Acetaminophen 325 MG TABLET 650 MG PO (06:25)
[2021-07-22] MEDS: Insulin Lispro 100 UNIT/ML 3 ML VIAL SUBCUT ×2 (08:32→16:59)
[2021-07-22 08:33] VITALS: BP 137/68; PULSE 89
[2021-07-22] MEDS: glipiZIDE 10 MG TABLET PO (08:33)
[2021-07-22] MEDS: Gabapentin 400 MG CAPSULE 800 MG PO ×3 (08:33→20:28)
[2021-07-22] MEDS: Ziprasidone 40 MG CAPSULE PO ×2 (08:33→20:28)
[2021-07-22] MEDS: metFORMIN HCl 1,000 MG TABLET 1000 MG PO ×2 (08:33→17:31)
[2021-07-22] MEDS: lisinopriL 10 MG TABLET 30 MG PO (08:33)
[2021-07-22] MEDS: Pioglitazone HCL 45 MG TABLET PO (08:33)
[2021-07-22] MEDS: Nicotine Polacrilex 2 MG GUM BUCCAL ×3 (09:15→19:51)
[2021-07-22] MEDS: Ferrous Sulfate 324 MG TABLET.DR PO (09:15)
[2021-07-22] MEDS: Magnesium Oxide 400 MG TABLET PO (09:15)
--- NOTE | 2021-07-22 11:00 | MHC.CARE ---
Authorization from [facility] [place] 5 days 07/19/21-07/23/21 [id number]
[2021-07-22 12:35] LABS: Glucose, Whole Blood 132 mg/dL (60-115)
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
[2021-07-22 16:22] LABS: Glucose, Whole Blood 373 mg/dL (60-115)
[2021-07-22 19:55] VITALS: BP 160/71; PULSE 110; RESP 18; TEMP 36.5; O2SAT 97
[2021-07-22 20:26] LABS: Glucose, Whole Blood 134 mg/dL (60-115)
[2021-07-23] MEDS: Acetaminophen 325 MG TABLET 650 MG PO (02:14)
[2021-07-23] MEDS: Nicotine Polacrilex 2 MG GUM BUCCAL ×3 (02:14→09:02)
[2021-07-23 06:00] VITALS: BP 133/60; PULSE 99; RESP 16
[2021-07-23 06:36] LABS: Glucose, Whole Blood 334 mg/dL (60-115)
[2021-07-23] MEDS: Insulin Lispro 100 UNIT/ML 3 ML VIAL SUBCUT ×2 (06:43→12:19)
[2021-07-23] MEDS: Ferrous Sulfate 324 MG TABLET.DR PO (08:23)
[2021-07-23] MEDS: Gabapentin 400 MG CAPSULE 800 MG PO (08:23)
[2021-07-23] MEDS: Magnesium Oxide 400 MG TABLET PO (08:23)
[2021-07-23] MEDS: Pioglitazone HCL 45 MG TABLET PO (08:23)
[2021-07-23] MEDS: Ziprasidone 40 MG CAPSULE PO (08:23)
[2021-07-23] MEDS: glipiZIDE 10 MG TABLET PO (08:23)
[2021-07-23] MEDS: lisinopriL 10 MG TABLET 30 MG PO (08:23)
[2021-07-23] MEDS: metFORMIN HCl 1,000 MG TABLET 1000 MG PO (08:23)
[2021-07-23] MEDS: Milk of Magnesia 30 ML ORAL.SUSP PO (08:37)
[2021-07-23 08:38] LABS: Anion Gap 13 (12-20); Blood Urea Nitrogen 26 mg/dL (9-16); Calcium 9.9 mg/dL (8.4-10.2); Carbon Dioxide 26 mmol/L (22-29); Chloride 105 mmol/L (96-108); Creatinine Clr Calc Pharmacy 74.8; Estimated Glomerular Filt Rate > 60; Glucose Random 156 mg/dL (60-115); Potassium 4.7 mmol/L (3.3-5.1); Sodium 139 mmol/L (135-145)
[2021-07-23 12:29] LABS: Glucose, Whole Blood 158 mg/dL (60-115)
--- NOTE | 2021-07-23 17:02 | P.DS_ITS ---
DS: Providers Provider Date of Service: 07/23/21 Date of admission: 07/19/21 21:41 Date of discharge: 07/23/21 Primary care physician: Unknown Physician Admitting clinician: Joana Farris Attending physician on admission: Rafael Perez Attending physician on discharge: Rafael Perez Discharging clinician: Michaelle Virgen DS: Diagnosis Discharge Diagnosis (1) Karon: Status: Resolved (2) Bipolar 1 disorder: Status: Acute DS: Medications Discharge Medications Home Medications: Previous Rx's Medication Instructions Recorded pioglitazone 45 mg tablet 45 mg PO DAILY #30 tab 04/05/21 famotidine 20 mg tablet (Pepcid) 20 mg PO DAILY PRN #30 tab 07/23/21 ferrous sulfate 324 mg (65 mg 324 mg PO DAILY #30 tab 07/23/21 iron) tablet,delayed release gabapentin 800 mg tablet 1 tab PO TID #90 tab 07/23/21 glipizide 10 mg tablet 1 tab PO DAILY #30 tab 07/23/21 lisinopril 20 mg tablet 1.5 tab PO DAILY #45 tab 07/23/21 magnesium oxide 400 mg (241.3 mg 400 mg PO DAILY #30 tab 07/23/21 magnesium) tablet metformin 1,000 mg tablet 1 tab PO BID #60 tab 07/23/21 trazodone 50 mg tablet 50 mg PO BEDTIME PRN #30 tab 07/23/21 ziprasidone HCl 40 mg capsule 40 mg PO BID #60 cap 07/23/21 Mental Status Exam Mental Status Exam Patient Appearance: Appropriate Patient Orientation: Person, Place, Time and Situation Level of Consciousness: Alert Patient Behavior: Appropriate, Talkative, Cooperative and Good Eye Contact Mood Description: Calm Affect Description: Calm Patient Cognition Impaired: No Ability to Follow Directions: Good Speech Pattern: Clear, Appropriate and Spontaneous Speech Memory Description: Intact Hallucinations: None Delusions: Not Present Thought Process: Intact Thought Content: positive for Intact, positive for [place], positive for Circumstantial and positive for Suicidal Ideation (denies) Judgement: Good Data Data Completed and Pending Completed studies during hospitalization [Text1]: 07/19/21 07/19/21 07/19/21 13:55 14:10 14:10 WBC 15.8 H RBC 4.41 L Hgb 13.2 L Hct 40.0 L MCV 90.7 MCH 29.9 MCHC 33.0 RDW 13.3 Plt Count 288 MPV 10.1 Immature Gran % (Auto) 0.6 H Neut % (Auto) 73.2 H Lymph % (Auto) 20.7 [place] % (Auto) 4.2 Eos % (Auto) 0.9 Baso % (Auto) 0.4 Lymph # (Auto) 3.3 [place] # (Auto) 0.7 Eos # (Auto) 0.1 Baso # (Auto) 0.1 Abs Immat Gran (auto) 0.09 H Absolute Neuts (auto) 11.6 H Absolute Nucleated RBC 0.000 Nucleated RBC % (auto) 0.0 Sodium 137 Potassium 5.2 H Chloride 105 Carbon Dioxide 23 Anion Gap 14 BUN 19 H Creatinine 1.02 Estim Creat Clear Calc 71.1 Estimated GFR > 60 POC Glucose 316 H Random Glucose 324 H Calcium 9.4 Magnesium 1.5 L Total Bilirubin 0.3 Direct Bilirubin < 0.2 AST 16 ALT 13 Alkaline Phosphatase 91 Ammonia Total Protein 7.0 Albumin 4.1 Lipase 38 Urine Color Urine Appearance Urine pH Ur Specific [place] Urine Protein Urine Glucose (UA) Urine Ketones Urine Blood Urine Nitrite Ur Leukocyte Esterase Urine RBC Urine WBC Ur Squamous Epith Cells Urine Bacteria Salicylates < 5.0 L Urine Opiates Screen Urine Fentanyl Screen Acetaminophen < 1 Ur Barbiturates Screen Ur Phencyclidine Scrn Ur Amphetamines Screen U Benzodiazepines Scrn Urine Cocaine Screen U Marijuana (THC) Screen Acetone, Qual Negative COVID-19 ([facility]) COVID-19 Clin Com 07/19/21 07/19/21 07/19/21 14:10 14:10 14:29 WBC RBC Hgb Hct MCV MCH MCHC RDW Plt Count MPV Immature Gran % (Auto) Neut % (Auto) Lymph % (Auto) [place] % (Auto) Eos % (Auto) Baso % (Auto) Lymph # (Auto) [place] # (Auto) Eos # (Auto) Baso # (Auto) Abs Immat Gran (auto) Absolute Neuts (auto) Absolute Nucleated RBC Nucleated RBC % (auto) Sodium Potassium Chloride Carbon Dioxide Anion Gap BUN Creatinine Estim Creat Clear Calc Estimated GFR POC Glucose Random Glucose Calcium Magnesium Total Bilirubin Direct Bilirubin AST ALT Alkaline Phosphatase Ammonia 16 Total Protein Albumin Lipase Urine Color YELLOW Urine Appearance CLEAR Urine pH 6.0 Ur Specific [place] <= 1.005 Urine Protein NEG Urine Glucose (UA) >=1000 H Urine Ketones NEG Urine Blood NEG Urine Nitrite NEG Ur Leukocyte Esterase NEG Urine RBC 0 Urine WBC 0 Ur Squamous Epith Cells NONE Urine Bacteria NONE Salicylates Urine Opiates Screen Urine Fentanyl Screen Acetaminophen Ur Barbiturates Screen Ur Phencyclidine Scrn Ur Amphetamines Screen U Benzodiazepines Scrn Urine Cocaine Screen U Marijuana (THC) Screen Acetone, Qual COVID-19 ([facility]) Negative COVID-19 Clin Com See Note 07/19/21 07/19/21 07/19/21 14:29 16:13 21:19 WBC RBC Hgb Hct MCV MCH MCHC RDW Plt Count MPV Immature Gran % (Auto) Neut % (Auto) Lymph % (Auto) [place] % (Auto) Eos % (Auto) Baso % (Auto) Lymph # (Auto) [place] # (Auto) Eos # (Auto) Baso # (Auto) Abs Immat Gran (auto) Absolute Neuts (auto) Absolute Nucleated RBC Nucleated RBC % (auto) Sodium Potassium Chloride Carbon Dioxide Anion Gap BUN Creatinine Estim Creat Clear Calc Estimated GFR POC Glucose 229 H 432 H* Random Glucose Calcium Magnesium Total Bilirubin Direct Bilirubin AST ALT Alkaline Phosphatase Ammonia Total Protein Albumin Lipase Urine Color Urine Appearance Urine pH Ur Specific [place] Urine Protein Urine Glucose (UA) Urine Ketones Urine Blood Urine Nitrite Ur Leukocyte Esterase Urine RBC Urine WBC Ur Squamous Epith Cells Urine Bacteria Salicylates Urine Opiates Screen Not Detected Urine Fentanyl Screen Not Detected Acetaminophen Ur Barbiturates Screen Not Detected Ur Phencyclidine Scrn Not Detected Ur Amphetamines Screen Not Detected U Benzodiazepines Scrn Not Detected Urine Cocaine Screen Not Detected U Marijuana (THC) Screen Not Detected Acetone, Qual COVID-19 ([facility]) COVID-19 Clin Com 07/20/21 07/20/21 07/20/21 06:45 17:43 19:54 WBC RBC Hgb Hct MCV MCH MCHC RDW Plt Count MPV Immature Gran % (Auto) Neut % (Auto) Lymph % (Auto) [place] % (Auto) Eos % (Auto) Baso % (Auto) Lymph # (Auto) [place] # (Auto) Eos # (Auto) Baso # (Auto) Abs Immat Gran (auto) Absolute Neuts (auto) Absolute Nucleated RBC Nucleated RBC % (auto) Sodium Potassium Chloride Carbon Dioxide Anion Gap BUN Creatinine Estim Creat Clear Calc Estimated GFR POC Glucose 106 383 H* 447 H* Random Glucose Calcium Magnesium Total Bilirubin Direct Bilirubin AST ALT Alkaline Phosphatase Ammonia Total Protein Albumin Lipase Urine Color Urine Appearance Urine pH Ur Specific [place] Urine Protein Urine Glucose (UA) Urine Ketones Urine Blood Urine Nitrite Ur Leukocyte Esterase Urine RBC Urine WBC Ur Squamous Epith Cells Urine Bacteria Salicylates Urine Opiates Screen Urine Fentanyl Screen Acetaminophen Ur Barbiturates Screen Ur Phencyclidine Scrn Ur Amphetamines Screen U Benzodiazepines Scrn Urine Cocaine Screen U Marijuana (THC) Screen Acetone, Qual COVID-19 ([facility]) COVID-19 Clin Com 07/21/21 07/21/21 07/21/21 01:19 06:05 09:35 WBC RBC Hgb Hct MCV MCH MCHC RDW Plt Count MPV Immature Gran % (Auto) Neut % (Auto) Lymph % (Auto) [place] % (Auto) Eos % (Auto) Baso % (Auto) Lymph # (Auto) [place] # (Auto) Eos # (Auto) Baso # (Auto) Abs Immat Gran (auto) Absolute Neuts (auto) Absolute Nucleated RBC Nucleated RBC % (auto) Sodium Potassium Chloride Carbon Dioxide Anion Gap BUN Creatinine Estim Creat Clear Calc Estimated GFR POC Glucose 193 H 209 H 334 H Random Glucose Calcium Magnesium Total Bilirubin Direct Bilirubin AST ALT Alkaline Phosphatase Ammonia Total Protein Albumin Lipase Urine Color Urine Appearance Urine pH Ur Specific [place] Urine Protein Urine Glucose (UA) Urine Ketones Urine Blood Urine Nitrite Ur Leukocyte Esterase Urine RBC Urine WBC Ur Squamous Epith Cells Urine Bacteria Salicylates Urine Opiates Screen Urine Fentanyl Screen Acetaminophen Ur Barbiturates Screen Ur Phencyclidine Scrn Ur Amphetamines Screen U Benzodiazepines Scrn Urine Cocaine Screen U Marijuana (THC) Screen Acetone, Qual COVID-19 ([facility]) COVID-19 Clin Com 07/21/21 07/21/21 07/21/21 12:07 16:38 20:37 WBC RBC Hgb Hct MCV MCH MCHC RDW Plt Count MPV Immature Gran % (Auto) Neut % (Auto) Lymph % (Auto) [place] % (Auto) Eos % (Auto) Baso % (Auto) Lymph # (Auto) [place] # (Auto) Eos # (Auto) Baso # (Auto) Abs Immat Gran (auto) Absolute Neuts (auto) Absolute Nucleated RBC Nucleated RBC % (auto) Sodium Potassium Chloride Carbon Dioxide Anion Gap BUN Creatinine Estim Creat Clear Calc Estimated GFR POC Glucose 256 H 149 H 191 H Random Glucose Calcium Magnesium Total Bilirubin Direct Bilirubin AST ALT Alkaline Phosphatase Ammonia Total Protein Albumin Lipase Urine Color Urine Appearance Urine pH Ur Specific [place] Urine Protein Urine Glucose (UA) Urine Ketones Urine Blood Urine Nitrite Ur Leukocyte Esterase Urine RBC Urine WBC Ur Squamous Epith Cells Urine Bacteria Salicylates Urine Opiates Screen Urine Fentanyl Screen Acetaminophen Ur Barbiturates Screen Ur Phencyclidine Scrn Ur Amphetamines Screen U Benzodiazepines Scrn Urine Cocaine Screen U Marijuana (THC) Screen Acetone, Qual COVID-19 (ITAL[facility]) COVID-19 Clin Com 07/22/21 07/22/21 07/22/21 06:17 12:31 16:17 WBC RBC Hgb Hct MCV MCH MCHC RDW Plt Count MPV Immature Gran % (Auto) Neut % (Auto) Lymph % (Auto) [place] % (Auto) Eos % (Auto) Baso % (Auto) Lymph # (Auto) [place] # (Auto) Eos # (Auto) Baso # (Auto) Abs Immat Gran (auto) Absolute Neuts (auto) Absolute Nucleated RBC Nucleated RBC % (auto) Sodium Potassium Chloride Carbon Dioxide Anion Gap BUN Creatinine Estim Creat Clear Calc Estimated GFR POC Glucose 225 H 132 H 373 H* Random Glucose Calcium Magnesium Total Bilirubin Direct Bilirubin AST ALT Alkaline Phosphatase Ammonia Total Protein Albumin Lipase Urine Color Urine Appearance Urine pH Ur Specific [place] Urine Protein Urine Glucose (UA) Urine Ketones Urine Blood Urine Nitrite Ur Leukocyte Esterase Urine RBC Urine WBC Ur Squamous Epith Cells Urine Bacteria Salicylates Urine Opiates Screen Urine Fentanyl Screen Acetaminophen Ur Barbiturates Screen Ur Phencyclidine Scrn Ur Amphetamines Screen U Benzodiazepines Scrn Urine Cocaine Screen U Marijuana (THC) Screen Acetone, Qual COVID-19 (ITAL[facility]) COVID-19 Clin Com 07/22/21 07/23/21 07/23/21 20:23 06:32 08:09 WBC RBC Hgb Hct MCV MCH MCHC RDW Plt Count MPV Immature Gran % (Auto) Neut % (Auto) Lymph % (Auto) [place] % (Auto) Eos % (Auto) Baso % (Auto) Lymph # (Auto) [place] # (Auto) Eos # (Auto) Baso # (Auto) Abs Immat Gran (auto) Absolute Neuts (auto) Absolute Nucleated RBC Nucleated RBC % (auto) Sodium 139 Potassium 4.7 Chloride 105 Carbon Dioxide 26 Anion Gap 13 BUN 26 H Creatinine 0.97 Estim Creat Clear Calc 74.8 Estimated GFR > 60 POC Glucose 134 H 334 H Random Glucose 156 H D Calcium 9.9 Magnesium Total Bilirubin Direct Bilirubin AST ALT Alkaline Phosphatase Ammonia Total Protein Albumin Lipase Urine Color Urine Appearance Urine pH Ur Specific [place] Urine Protein Urine Glucose (UA) Urine Ketones Urine Blood Urine Nitrite Ur Leukocyte Esterase Urine RBC Urine WBC Ur Squamous Epith Cells Urine Bacteria Salicylates Urine Opiates Screen Urine Fentanyl Screen Acetaminophen Ur Barbiturates Screen Ur Phencyclidine Scrn Ur Amphetamines Screen U Benzodiazepines Scrn Urine Cocaine Screen U Marijuana (THC) Screen Acetone, Qual COVID-19 ([facility]) COVID-19 Clin Com 07/23/21 12:12 WBC RBC Hgb Hct MCV MCH MCHC RDW Plt Count MPV Immature Gran % (Auto) Neut % (Auto) Lymph % (Auto) [place] % (Auto) Eos % (Auto) Baso % (Auto) Lymph # (Auto) [place] # (Auto) Eos # (Auto) Baso # (Auto) Abs Immat Gran (auto) Absolute Neuts (auto) Absolute Nucleated RBC Nucleated RBC % (auto) Sodium Potassium Chloride Carbon Dioxide Anion Gap BUN Creatinine Estim Creat Clear Calc Estimated GFR POC Glucose 158 H Random Glucose Calcium Magnesium Total Bilirubin Direct Bilirubin AST ALT Alkaline Phosphatase [place] Total Protein Albumin Lipase Urine Color Urine Appearance Urine pH Ur Specific [place] Urine Protein Urine Glucose (UA) Urine Ketones Urine Blood Urine Nitrite Ur Leukocyte Esterase Urine RBC Urine WBC Ur Squamous Epith Cells Urine Bacteria Salicylates Urine Opiates Screen Urine Fentanyl Screen Acetaminophen Ur Barbiturates Screen Ur Phencyclidine Scrn Ur Amphetamines Screen U Benzodiazepines Scrn Urine Cocaine Screen U Marijuana (THC) Screen Acetone, Qual COVID-19 ([facility]) COVID-19 Clin Com Imaging Diagnostic Imaging Impressions Chest X-Ray 07/19/21 14:30 IMPRESSION: Unremarkable examination. DS: Summary Hospital Course Hospital Course: 56 yo male, history of Bipolar Disorder, to ER with reports of wanting his diabetes medications adjusted and symptoms of karon according to his family. Pt with three prior visits during the week to ER. reports insomnia, erratic behaviors, agitation, impulsivity. Pt was admitted on a conditional voluntary, however signed a three day notice of intention. He worked with nursing and social service teams on aftercare planning, worked on medication titration, and had a family meeting with his to discuss her observations of his behavior and his rationale for his behaviors and actions prior to admission. felt he had returned to baseline, agreed with his explanations and perceptions of circumstances prior to his admission. Pt requested to continue his care on an out patient basis and appointments were scheduled. Time spent discussing smoking cessation with patient: 3 to 10 minutes Status at Discharge Cognitive/behavioral status at discharge: Alert, oriented, mood stable with no sx of karon, non-suicidal, non-homicidal, non-psychotic. Agrees with plan of care and requests to continue his care as an outpatient. Functional status at discharge: independent ambulation Overall status at discharge: patient is back to baseline Time Spent with Patient Time attestation: Total time spent providing and/or coordinating discharge services:60 Time spent: Greater than 30 minutes Discharge Plan Discharge Anticipated Discharge Date/Time: 07/23/21 15:00 Patient Disposition: Home, Self-Care Discharge Diagnosis: Bipolar Disorder Diabetes Hypertension Referrals: Therapist: Barby Bustillos([facility]) [Other] - 07/25/21 12:00 pm (In office) Psych Prescriber: Latisha Smith ([facility]) [Other] - 08/20/21 10:00 am (Telehealth, you will receive an email with a link for video session) Psych Prescriber: Latisha Smith ([facility]) [Other] - 09/16/21 11:20 am (Telehealth, you will receive an email with a link for video session) Umm Rodriguez MD [Physician] - 1 Week (OFFICE WILL CALL PATIENT AT HOME FOR FOLLOW-UP APPOINTMENT.) Discharge Medications: New trazodone 50 mg Tablet 50 mg PO BEDTIME PRN (Reason: Insomnia) Qty: 30 RF: 0 magnesium oxide 400 mg (241.3 mg magnesium) Tablet 400 mg PO DAILY Qty: 30 RF: 0 ziprasidone HCl 40 mg Capsule 40 mg PO BID Qty: 60 RF: 0 ferrous sulfate 324 mg (65 mg iron) Tablet,Delayed Release (Dr/Ec) 324 mg PO DAILY Qty: 30 RF: 0 Continued lisinopril 20 mg tablet 1.5 tab PO DAILY Qty: 45 RF: 0 glipizide 10 mg tablet 1 tab PO DAILY Qty: 30 RF: 0 famotidine [Pepcid] 20 mg tablet 20 mg PO DAILY PRN (Reason: abdominal discomfort) Qty: 30 RF: 0 gabapentin 800 mg tablet 1 tab PO TID Qty: 90 RF: 0 metformin 1,000 mg tablet 1 tab PO BID Qty: 60 RF: 0 pioglitazone 45 mg tablet 45 mg PO DAILY Qty: 30 RF: 2 Discharge Orders: Discharge Order (Routine); Ordered 07/23/21 Ordered By: Michaelle Virgen Diet: advance to usual diet Activity on Discharge: As tolerated Stand Alone Forms: Patient Portal Discharge page Care Plan Goals: Mood stability Health Concerns: Bipolar Disorder Diabetes Hyperglycemia Hypertension Plan of Treatment: Take medications as directed Follow up with scheduled appointments Return to the emergency room should symptoms recur. Assessment: Alert, oriented, non-psychotic, non-suicidal, non-manic Discharge Date/Time: 07/23/21 13:47
== END 2021-07-23 13:47 | disposition home or self-care (01) | DRG 753 ==
LOC: HO.ED 18:10 → HO.PM5 21:45
PROVIDERS: Physician Assistant; Admitting Provider Registered Nurse; Emergency Provider Emergency Medicine; Visit Provider Clinical Nurse Specialist Psychiatric/Mental Health, Adult
DX: F31.10 Bipolar disorder, current episode manic without psychotic features, unspecified (principal); E11.42 Type 2 diabetes mellitus with diabetic polyneuropathy; E11.65 Type 2 diabetes mellitus with hyperglycemia; Z20.822 Contact with and (suspected) exposure to COVID-19; F17.210 Nicotine dependence, cigarettes, uncomplicated; Z71.6 Tobacco abuse counseling; Z88.0 Allergy status to penicillin; Z79.899 Other long term (current) drug therapy
CPT/HCPCS: 36415; 71045; 80048; 80076; 80143; 80179; 80307; 81001; 82009; 82140; 82947; 83690; 83735; 85025; 87635; 93005; 96360; 99285